=== PATIENT | female | born 1925 | race Caucasian/White ===

== ENCOUNTER 2016-10-18 04:49 | Observation (INO) | payer MEDICARE, OTHER ==
[2016-10-18 05:21] LABS: Hematocrit 43 % (35-47); Hemoglobin 14.5 g/dl (12.0-16.0); Mean Corpuscular HGB Conc 34 g/dl (31-36); Mean Corpuscular Hemoglobin 32 pg (27-31); Mean Corpuscular Volume 94 fL (80-97); Mean Platelet Volume 9 um3 (7.4-10.4); Red Blood Count 4.59 10^6/ul (4.0-5.4); Red Cell Distribution Width 15 % (10.5-15)
[2016-10-18 05:33] LABS: BUN/Creatinine Ratio 30.6 (8-20); C Reactive Protein 3.23 mg/L (< 5.00); EGFR African American 53.9 (>60); EGFR Non-African American 41.9 (>60); Globulin 3.7 g/dL (2-4); Magnesium 1.5 mg/dL (1.9-2.7); Potassium 3.3 mmol/L (3.5-5.0); Total Bilirubin 0.7 mg/dL (0.2-1.0); Total Protein 7.7 g/dL (6.4-8.9)
[2016-10-18 05:37] LABS: Troponin I 0.04 ng/mL (<0.04)
[2016-10-18 06:12] LABS: TSH (Thyroid Stimulating Horm) 3.91 mcIU/mL (0.34-5.60)
--- NOTE | 2016-10-18 07:09 | ED ---
Celine Be SooYoung, scribed for Miguel Bullock MD on 10/18/16 at 0559 . HPI Chest Pain - HPI Summary HPI Summary: A 89 y/o F presents to ED with acute intermittent L-sided onset [id number]. She woke up due to the pain. Episodes were brief. Associated sx include SOB, neck and shoulder pain. Pt is unsure if the neck and shoulder pain are acute with the CP or due to prior injury. PMHx: blood clots. - History of Current Complaint Chief Complaint: EDChestPainROMI Time Seen by Provider: 10/18/16 04:54 Hx Obtained From: Patient Onset/Duration: Resolved Timing: Intermittent Initial Severity: Moderate Current Severity: None Pain Intensity: 0 Pain Scale Used: 0-10 Numeric Associated Signs and Symptoms: Positive: Shortness of Breath, Other: - pos: neck and shoulder pain - Additional Pertinent History Primary Care Physician: DEB - Allergy/Home Medications Allergies/Adverse Reactions: Allergies Allergy/AdvReac Type Severity Reaction Status Date / Time Penicillins [PCN] Allergy Unknown Verified 01/10/16 12:03 Reaction Details Morphine and Related AdvReac Severe Hallucinati Verified 01/10/16 13:05 ons Hydrocodone [From Lortab] AdvReac Intermediate See Comment Verified 01/10/16 13: 05 Home Medications: Home Medications Insulin GLARGINE(*) [Lantus(*)] 5 units SUBCUT BEDTIME 10/18/16 [History Confirmed 10/18/16] Insulin LISPRO* [HumaLOG*] 2 unit SUBCUT AC 10/18/16 [History Confirmed 10/18/16 ] Isosorbide Mononitrate ER TAB* [Imdur ER TAB*] 30 mg PO DAILY 10/18/16 [History Confirmed 10/18/16] Potassium Chlor TAB* [Klor Con ER TAB*] 40 meq PO QPM 10/18/16 [History Confirmed 10/18/16] Sodium Chloride TAB* 2 gm PO QAM 10/18/16 [History Confirmed 10/18/16] Sodium Chloride TAB* 3 gm PO QPM 10/18/16 [History Confirmed 10/18/16] PMH/Surg Hx/FS Hx/Imm Hx Previously Healthy: No Endocrine/Hematology History: Reports: Hx Anticoagulant Therapy, Hx Diabetes Denies: Hx Blood Disorders, Hx Blood Transfusions, Hx Bone Marrow Disease, Hx Systemic Lupus Erythematosus, Hx Sickle Cell Disease, Hx Thyroid Disease, Hx Anemia, Hx Unexplained Bleeding Cardiovascular History: Reports: Hx Auto Implanted Cardiovert Defib, Hx Coronary Artery Disease, Hx Deep Vein Thrombosis, Hx Hypercholesterolemia, Hx Hypertension - W/MEDS, Hx Pacemaker/ICD - 2009, Hx Syncope, Other Cardiovascular Problems/Disorders - IDDM II Denies: Hx Aneurysm, Hx Angina, Hx Angioplasty, Hx Cardiac Arrest, Hx Cardiomegaly, Hx Congenital Heart Disease, Hx Congestive Heart Failure, Hx Hypotension, Hx Peripheral Vascular Disease, Hx Rheumatic Fever, Hx Valvular Heart Disease Respiratory History: Reports: Hx Chronic Bronchitis, Hx Pneumonia, Hx Pulmonary Edema, Hx Pulmonary Embolism, Hx Seasonal Allergies Denies: Hx Asthma, Hx Chronic Obstructive Pulmonary Disease (COPD), Hx Cystic Fibrosis, Hx Lung Cancer, Hx Pleural Effusion, Hx Sleep Apnea GI History: Reports: Hx Diverticulosis Denies: Hx Cirrhosis, Hx Crohn's Disease, Hx Gall Bladder Disease, Hx Gastroesophageal Reflux Disease, Hx Gastrointestinal Bleed, Hx Hiatal Hernia, Hx Irritable Bowel, Hx Jaundice, Hx Obstructive Bowel, Hx Ileostomy, Hx Pyloric Stenosis, Hx Ulcer History: Reports: Hx Kidney Infection Denies: Hx Acute Renal Failure, Hx Benign Prostatic Hyperplasia, Hx Chronic Renal Failure, Hx Dialysis, Hx Kidney Stones, Other Problems/Disorders Musculoskeletal History: Reports: Hx Arthritis, Hx Back Problems, Hx Orthopedic Injury, Hx Osteoporosis, Hx Tendonitis Denies: Hx Bursitis, Hx Congenital Bone Abnormalities, Hx Fibromyalgia, Hx Gout, Hx Scoliosis Sensory History: Reports: Hx Cataracts, Hx Contacts or Glasses, Hx Hearing Problem - Left ear Denies: Hx Eye Injury, Hx Eye Prosthesis, Hx Glaucoma, Hx Macular Degeneration, Hx Vision Problem, Hx Deafness, Hx Hearing Aid Opthamlomology History: Reports: Hx Cataracts, Hx Contacts or Glasses Denies: Hx Eye Injury, Hx Eye Prosthesis, Hx Glaucoma, Hx Macular Degeneration, Hx Vision Problem Neurological History: Reports: Hx Transient Ischemic Attacks (TIA), Other Neuro Impairments/Disorders - C-2 FX 02/20/2013 Denies: Hx Dementia, Hx Developmental Delay, Hx Headaches, Hx Migraine, Hx Nerve Disease, Hx Seizures, Hx Spinal Cord Injury Psychiatric History: Reports: Hx Depression - Surgical History Surgery Procedure, Year, and Place: x4. Triple bypass 1995 Hx Anesthesia Reactions: No Infectious Disease History: No Infectious Disease History: Denies: Hx Clostridium Difficile, Hx Hepatitis, Hx Human Immunodeficiency Virus (HIV), Hx Shingles, Hx Tuberculosis, Traveled Outside the [place] in Last 30 Days - Social History Occupation: Retired Lives: Alone Alcohol Use: None Substance Use Type: Reports: None Hx Tobacco Use: No Smoking Status (MU): Never Smoked Tobacco Review of Systems Positive: Chest Pain Positive: Shortness Of Breath Positive: Other - pos: neck and shoulder pain All Other Systems Reviewed And Are Negative: Yes Physical Exam Triage Information Reviewed: Yes Vital Signs On Initial Exam: Initial Vitals Temp Pulse Resp BP Pulse Ox 97.3 F 74 10 139/83 98 10/18/16 04:50 10/18/16 04:50 10/18/16 04:50 10/18/16 04:50 10/18/16 04:50 Vital Signs Reviewed: Yes Appearance: Positive: Well-Appearing, No Pain Distress Skin: Positive: Warm, Skin Color Reflects Adequate Perfusion, Dry Head/Face: Positive: Normal Head/Face Inspection Eyes: Positive: EOMI, NORBERT ENT: Positive: Normal ENT inspection Neck: Positive: Supple, Nontender Respiratory/Lung Sounds: Positive: Clear to Auscultation, Breath Sounds Present Cardiovascular: Positive: RRR Abdomen Description: Positive: Nontender, Soft Bowel Sounds: Positive: Present Musculoskeletal: Positive: Strength/ROM Intact, Other - BILAT PEDAL EDEMA Neurological: Positive: Normal, Sensory/Motor Intact, Alert, Oriented to Person Place, Time Psychiatric: Positive: Affect/Mood Appropriate - Rachell Coma Scale Coma Scale Total: 15 Diagnostics - Vital Signs Vital Signs Temp Pulse Resp BP Pulse Ox 10/18/16 04:50 97.3 F 74 10 139/83 98 - Laboratory Lab Results: Lab Results 10/18/16 10/18/16 10/18/16 Range/Units 05:03 05:03 05:03 WBC 6.0 (3.5-10.8) 10^3/ul RBC 4.59 (4.0-5.4) 10^6/ul Hgb 14.5 (12.0-16.0) g/dl Hct 43 (35-47) % MCV 94 (80-97) fL MCH 32 H (27-31) pg MCHC 34 (31-36) g/dl RDW 15 (10.5-15) % Plt Count 150 (150-450) 10^3/ul MPV 9 (7.4-10.4) um3 Neut % (Auto) 41.8 (38-83) % Lymph % (Auto) 35.1 (25-47) % Coosa % (Auto) 18.1 H (1-9) % Eos % (Auto) 4.2 (0-6) % Baso % (Auto) 0.8 (0-2) % Absolute Neuts (auto) 2.5 (1.5-7.7) 10^3/ul Absolute Lymphs (auto) 2.1 (1.0-4.8) 10^3/ul Absolute Monos (auto) 1.1 H (0-0.8) 10^3/ul Absolute Eos (auto) 0.3 (0-0.6) 10^3/ul Absolute Basos (auto) 0 (0-0.2) 10^3/ul Absolute Nucleated RBC 0.01 10^3/ul Nucleated RBC % 0.1 INR (Anticoag Therapy) 1.10 (0.89-1.11) APTT 29.7 (26.0-36.3) seconds D-Dimer, Quantitative 354 H (Less Than 230) ng/mL Sodium 137 (133-145) mmol/L Potassium 3.3 L (3.5-5.0) mmol/L Chloride 95 L (101-111) mmol/L Carbon Dioxide 35 H (22-32) mmol/L Anion Gap 7 (2-11) mmol/L BUN 37 H (6-24) mg/dL Creatinine 1.21 H (0.51-0.95) mg/dL Est GFR ( Amer) 53.9 (>60) Est GFR (Non-Af Amer) 41.9 (>60) BUN/Creatinine Ratio 30.6 H (8-20) Glucose 166 H (70-100) mg/dL Lactic Acid (0.5-2.0) mmol/L Calcium 10.0 (8.6-10.3) mg/dL Magnesium 1.5 L (1.9-2.7) mg/dL Total Bilirubin 0.70 (0.2-1.0) mg/dL AST 22 (13-39) U/L ALT 14 (7-52) U/L Alkaline Phosphatase 54 (34-104) U/L Total Creatine Kinase 51 (10-223) U/L CK-MB (CK-2) 2.7 (0.6-6.3) ng/mL Troponin I 0.04 H* (<0.04) ng/mL C-Reactive Protein 3.23 (< 5.00) mg/L B-Natriuretic Peptide ( - 100) pg/mL Total Protein 7.7 (6.4-8.9) g/dL Albumin 4.0 (3.2-5.2) g/dL Globulin 3.7 (2-4) g/dL Albumin/Globulin Ratio 1.1 (1-3) Lipase 92 H (11.0-82.0) U/L TSH Pending 10/18/16 10/18/16 Range/Units 05:03 05:03 WBC (3.5-10.8) 10^3/ul RBC (4.0-5.4) 10^6/ul Hgb (12.0-16.0) g/dl Hct (35-47) % MCV (80-97) fL MCH (27-31) pg MCHC (31-36) g/dl RDW (10.5-15) % Plt Count (150-450) 10^3/ul MPV (7.4-10.4) um3 Neut % (Auto) (38-83) % Lymph % (Auto) (25-47) % Coosa % (Auto) (1-9) % Eos % (Auto) (0-6) % Baso % (Auto) (0-2) % Absolute Neuts (auto) (1.5-7.7) 10^3/ul Absolute Lymphs (auto) (1.0-4.8) 10^3/ul Absolute Monos (auto) (0-0.8) 10^3/ul Absolute Eos (auto) (0-0.6) 10^3/ul Absolute Basos (auto) (0-0.2) 10^3/ul Absolute Nucleated RBC 10^3/ul Nucleated RBC % INR (Anticoag Therapy) (0.89-1.11) APTT (26.0-36.3) seconds D-Dimer, Quantitative (Less Than 230) ng/mL Sodium (133-145) mmol/L Potassium (3.5-5.0) mmol/L Chloride (101-111) mmol/L Carbon Dioxide (22-32) mmol/L Anion Gap (2-11) mmol/L BUN (6-24) mg/dL Creatinine (0.51-0.95) mg/dL Est GFR ( Amer) (>60) Est GFR (Non-Af Amer) (>60) BUN/Creatinine Ratio (8-20) Glucose (70-100) mg/dL Lactic Acid 1.6 (0.5-2.0) mmol/L Calcium (8.6-10.3) mg/dL Magnesium (1.9-2.7) mg/dL Total Bilirubin (0.2-1.0) mg/dL AST (13-39) U/L ALT (7-52) U/L Alkaline Phosphatase (34-104) U/L Total Creatine Kinase (10-223) U/L CK-MB (CK-2) (0.6-6.3) ng/mL Troponin I (<0.04) ng/mL C-Reactive Protein (< 5.00) mg/L B-Natriuretic Peptide 186 H ( - 100) pg/mL Total Protein (6.4-8.9) g/dL Albumin (3.2-5.2) g/dL Globulin (2-4) g/dL Albumin/Globulin Ratio (1-3) Lipase (11.0-82.0) U/L TSH Result Diagrams: 10/18/16 05:03 10/18/16 05:03 Lab Statement: Any lab studies that have been ordered have been reviewed, and results considered in the medical decision making process. Chest Pain Course/Dx - Course Assessment/Plan: NO CHEST PAIN IN ED. ADMIT HOSPITALIST STABLE. - Diagnoses Provider Diagnoses: Chest pain - Provider Notifications Discussed Care Of Patient With: Spoke with donal Bhardwaj Time Discussed With Above Provider: 06:23 Instructed by Provider To: Admit As Inpatient Discharge - Discharge Plan Condition: Stable Disposition: ADMITTED TO [facility] Referrals: Sujit Watters MD [Primary Care Provider] - The documentation as recorded by the Celine martin SooYoung accurately reflects the service I personally performed and the decisions made by , Miguel Bullock MD.
--- NOTE | 2016-10-18 07:54 | RAD ---
Indication: Chest pain. Chronic bronchitis. Diabetic, cardiac disease. Comparison: January 10, 2016 CT. Technique: Upright AP 0515 hours Report: Elevated lung volumes. Mild prominence of the interstitial markings. No alveolar consolidation, focal pulmonary lesion, pleural effusion, pneumothorax. Cardiomegaly, median sternotomy wires, mediastinal vascular clips, RIGHT atrial, and RIGHT ventricular level pacemaker leads. Unremarkable central pulmonary vasculature. Advanced arthropathy at the LEFT glenohumeral joint. IMPRESSION: Stigmata of chronic obstructive pulmonary disease. No acute cardiopulmonary process evident.
--- NOTE | 2016-10-18 08:52 | RAD ---
INDICATION: Bilateral lower extremity edema, positive d-dimer. COMPARISON: Comparison is made with a prior study from January 11, 2016. TECHNIQUE: Multiple real-time, color flow and Doppler tracings of both lower extremities were obtained. FINDINGS: The common femoral, femoral, profunda femoral and popliteal veins all demonstrate normal compressibility, augmentation with compression and phasic response with respiration. The posterior tibial and peroneal veins demonstrate normal compressibility and augmentation with compression. IMPRESSION: NO EVIDENCE FOR DEEP VENOUS THROMBOSIS.
[2016-10-18] MEDS ORDERED: Nitroglycerin TAB 0.4 MG* 0.4 MG TAB SL ONE (09:06)
[2016-10-18] MEDS ORDERED: Ondansetron INJ* 2 MG/ML VIAL IV PRN (09:15)
[2016-10-18] MEDS ORDERED: Dextrose 50% Syringe 50 ML* 25 GM/50 ML SYRINGE IV PUSH PRN (09:28)
--- NOTE | 2016-10-18 10:29 | HP ---
ADMISSION HISTORY AND PHYSICAL: DATE OF ADMISSION: 10/18/16 PRIMARY CARE PROVIDER: Dr. Watters; Physician at [facility] MANAGER FUND: Dr. Casas HEALTHCARE PROXY: Anthony Peralta, her son. CODE STATUS: DNR/DNI, discussed with the patient and her son updated MOLST form in chart. HISTORY OBTAINED: From interview with patient, past medical records. RELIABILITY OF RECORDS: Good; from patient is fair. CHIEF COMPLAINT: Chest pain. HISTORY OF PRESENT ILLNESS: This is an 89-year-old resident of [facility] with history of CAD, status post CABG as well as remote PCI per patient (not indicated in record here), chronic angina who has been in her usual state of health, although does note generally feeling weaker over the preceding months. She was last admitted in December 2015 with chest pain and a fall, noted in diastolic heart failure exacerbation, unable to perform stress test at that time or since that time secondary to shoulder injury and inability to lay in appropriate position. Overnight, between 1:30 and 2 a.m., developed chest pain described as sharp, lasting for seconds to minutes, associated with headache but no lightheadedness, palpitations, nausea, vomiting, diaphoresis. She notes she had shortness of breath intermittent and irrespective of chest pain. She indicated to nursing that she was having this chest pain who contacted the on- call doctor and directed to the emergency room. Patient indicated she did not want to proceed to the ER. Of note - she's been off oxygen for one month and Isordil 10 mg was stopped on the 6th and Imdur 30 mg was started. She denies any recent fevers or chills. She has a chronic cough. She has on and off diarrhea fluctuating with constipation, no symptoms. She says chest pain is similar compared to her chronic anginal symptoms except this has become actually more frequent than just this evening, and has been occurring up to several times per week. She describes this chest pain as different in that it has been more frequent than past. She notes that she still has symptoms of chest discomfort which prompted presentation to the ER. PAST MEDICAL HISTORY: 1. Insulin-dependent diabetes mellitus. 2. Coronary artery disease, with history of CABG. 3. Permanent pacemaker, sinus node dysfunction. 4. Hyperlipidemia. 5. History of DVT. 6. History of PE, off of anticoagulation. 7. History of TIA. 8. History of atrial fibrillation, off of anticoagulation. 9. Known chronic angina. 10. Gastroesophageal reflux disease. 11. Left humerus fracture. 12. Chronic kidney disease. MEDICATIONS: Reviewed from [facility] list: 1. Metoprolol 12.5 mg twice daily. 2. Metolazone 5 mg daily. 3. Senna/docusate two __tabs__ at bedtime. 4. Potassium chloride 20 mEq in the morning; not on home list, though started this admission. 5. Magnesium oxide 400 mg daily. 6. Imdur ER 30 mg daily. 7. Lantus 5 units at bedtime. 8. Lispro 2 units with meals. 9. Lasix 60 mg twice daily. 10. Citalopram 5 mg daily. 11. Aspirin 81 mg daily. 12. Tylenol 1000 mg 3x daily. ALLERGIES: 1. PENICILLIN. 2. MORPHINE. 3. HYDROCODONE. FAMILY HISTORY: Reviewed and noncontributory to this admission. SOCIAL HISTORY: No history of tobacco, alcohol, or illicits. Lives at [facility]. REVIEW OF SYSTEMS: As per HPI; otherwise, all other systems negative. PHYSICAL EXAMINATION GENERAL: Elderly woman sitting up in bed, talks in full sentences, no apparent distress. VITAL SIGNS: When seen by this author, 158/75, heart rate 73, respiratory rate 16, 98% on room air, T-max in the emergency room 97.3. HEENT: Oropharynx is clear. Has moist mucous membranes. Sclerae anicteric. NECK: Nonelevated JVD. No palpable goiter. No cervical or supraclavicular lymphadenopathy. CARDIOVASCULAR: She had an irregular heart rate without notable murmurs, rubs, or gallops. LUNGS: Clear to auscultation. Has minimal rales in bilateral bases. ABDOMEN: Soft, non-tender, non-distended. Positive bowel sounds. EXTREMITIES: Warm and well-perfused with trace lower extremity edema. NEURO: She is alert and oriented x3. Cranial nerves intact. PSYCH: No agitation, anxiety, or depression. DIAGNOSTIC STUDIES/LAB DATA: Labs reviewed - troponin-I on presentation 0.04, consistent with previous tests. BNP 186. Lipase 92. TSH 3.9. BUN 37, creatinine 1.21. D-dimer 354, noted to be less than prior stay when PE was ruled out. White blood cell count 6, hemoglobin 14.5, platelets 150. EKG - difficult to interpret, but appears to be atrial fibrillation with intermitted ventricular paced beats. No evidence of ischemia. Chest x-ray - cardiomegaly, stigmata of COPD. ASSESSMENT AND PLAN: This is an 89-year-old female with past medical history of CAD, atrial fibrillation, type-II diabetes, known chronic angina, presenting with chest pain overnight that's been intermittent and short in duration. 1. Chest pain - consistent with chronic anginal symptoms. Of note - patient would not elect to pursue cardiac catheterization even in the setting of positive stress test. Discussed this at length with patient and her health care proxy. They understand that pursuing a stress test would only offer information that may indicate a stress test. They do not wish to pursue it at this time even if it were possible. She wishes to titrate medication for optimal medical therapy to remain symptom free. We'll cycle troponins, check transthoracic echocardiogram, pursue cardiology consult. As patient of Dr. Casas's, ask for assistance in titrating medications for symptom freedom, likely to include increasing Nitroglycerin as blood pressure tolerates. 2. Lower extremity __edema - continue Lasix, Metolazone, strict I's and O' s, daily weights. 3. CKD - __dose meds accordingly . 4. Diabetes - fingerstick glucose and Lantus with sliding scale insulin. 5. Atrial fibrillation - rate controlled, off of anticoagulation chronically. 6. Diet - heart healthy, no caffeine, mechanical soft per [facility] records. CC: Dr. Watters; Dr. Casas; Physician at [facility] [id number]/CPS #: [id number] [facility]
[2016-10-18] MEDS: Acetaminophen TAB* 325 MG PO PRN (10:34)
[2016-10-18] MEDS: Insulin LISPRO* 1 UNITS UNIT SUBCUT SCH ×3 (12:45→21:14)
--- NOTE | 2016-10-18 13:39 | CONSULT ---
Subjective Date of Service: 10/18/16 Interval History: Admission Date: 10/18/16 Provider: Familia Freeman MD/Hospitalist NIELS Watters/Physician at [facility], [place] [employer]eorological Equipment Repairer: Dr. Casas Date of consult: 10/18/2016 CC: Chest pain Reason for consult: Chest pain HISTORY OF PRESENT ILLNESS: Memo Onofre an 89-year-old resident of [facility], [place] with history of CAD/ CABG 1996, ?PCI, pacemaker AFib, chronic angina and blood clots per her account. She was on warfarin at some point and she is not sure why this was stopped. Was unable to complete a stress test last year due to inability to lift arms. Overnight, between 1:30 and 2 a.m., developed chest pain described as sharp associated with headache and it radiated under her left breast. No dyspnea with this episode, palpitations, lightheadedness or syncope. Her baseline breathing is unchanged and there has been no significant edema. She has been off oxygen for a month and Isordil 10 mg BID was stopped on the 6th and Imdur 30 mg was started. She has noted getting chest pain several times a week. PAST MEDICAL HISTORY: 1. Insulin-dependent diabetes mellitus. 2. Coronary artery disease, with history of CABG. 3. Permanent pacemaker, sinus node dysfunction. 4. Hyperlipidemia. 5. History of DVT. 6. History of PE, off of anticoagulation. 7. History of TIA. 8. History of atrial fibrillation, off of anticoagulation. 9. Known chronic angina. 10. Gastroesophageal reflux disease. 11. Left humerus fracture. 12. Chronic kidney disease. ALLERGIES: 1. PENICILLIN. 2. MORPHINE. 3. HYDROCODONE. FAMILY HISTORY: Reviewed and noncontributory to this admission. SOCIAL HISTORY: No history of tobacco, alcohol, or illicits. Lives at [facility], [place]. Medications Active Medications: Acetaminophen (Tylenol Tab*) 650 mg PO Q6H PRN PRN Reason: PAIN Last Admin: 10/18/16 10:34 Dose: 650 mg Aspirin (Aspirin Ec Low Dose*) 81 mg PO DAILY DONTE Citalopram Hydrobromide (Celexa Tab*) 5 mg PO DAILY DONTE Dextrose (D50w Syringe 50 Ml*) 12.5 gm IV PUSH .FOR FS < 60 - SS PRN PRN Reason: FS < 60 Furosemide (Lasix Tab*) 60 mg PO BID DONTE Heparin Sodium (Porcine) (Heparin Vial(*)) 5,000 units SUBCUT Q8HR [facility] Influenza Virus Vaccine (Fluarix *Quad* *) 0.5 ml IM .ONCE ONE Stop: 10/19/16 09:01 Insulin Glargine (Lantus(*)) 5 units SUBCUT BEDTIME [facility] Insulin Human Lispro (Humalog*) 0 units SUBCUT ACHS [facility] PRN Reason: Protocol Last Admin: 10/18/16 12:45 Dose: 2 units Isosorbide Mononitrate (Imdur Er Tab*) 30 mg PO DAILY [facility] Magnesium Oxide (Magox 400 Tab*) 400 mg PO DAILY [facility] Metolazone (Zaroxolyn Tab*) 5 mg PO DAILY [facility] Metoprolol Tartrate (Lopressor Tab*) 12.5 mg PO BID [facility] Ondansetron HCl (Zofran Inj*) 4 mg IV Q4H PRN PRN Reason: NAUSEA Potassium Chloride (Klor Con Er Tab*) 20 meq PO QAM [facility] Home Medications: Aspirin EC Low Dose* [Ecotrin EC Low Dose*] 81 mg PO DAILY 02/20/13 [History Confirmed 10/18/16] Citalopram TAB* [Celexa TAB*] 5 mg PO DAILY 02/20/13 [History Confirmed 10/18/16 ] Magnesium Oxide TAB* [MagOx 400 TAB*] 400 mg PO DAILY 02/20/13 [History Confirmed 10/18/16] Potassium Chlor TAB* [Potassium Chlor TAB 20 MEQ*] 20 meq PO QAM 02/20/13 [ History Confirmed 10/18/16] Acetaminophen [Acetaminophen Extra Stren] 1,000 mg PO TID 01/10/16 [History Confirmed 10/18/16] Furosemide TAB* [Lasix TAB*] 60 mg PO BID 01/10/16 [History Confirmed 10/18/16] Sennosides-Docusate Sodium [Senokot S 8.6-50 mg] 2 tab PO BEDTIME 01/10/16 [ History Confirmed 10/18/16] Insulin GLARGINE(*) [Lantus(*)] 5 units SUBCUT BEDTIME 10/18/16 [History Confirmed 10/18/16] Insulin LISPRO* [HumaLOG*] 2 unit SUBCUT AC 10/18/16 [History Confirmed 10/18/16 ] Isosorbide Mononitrate ER TAB* [Imdur ER TAB*] 30 mg PO DAILY 10/18/16 [History Confirmed 10/18/16] Metolazone [Metolazone] 1 tab PO DAILY 10/18/16 [History Confirmed 10/18/16] Metoprolol Tartrate [Metoprolol Tartrate] 0.5 tab PO BID 10/18/16 [History Confirmed 10/18/16] Review of Systems - Measurements Intake and Output: Intake and Output Last 24 Hours 10/16/16 10/17/16 10/18/16 10/19/16 06:59 06:59 06:59 06:59 Weight 156 lb 14.4 oz - Review of Systems Constitutional Symptoms: Positive: Weakness Negative: Weight Loss, Fatigue, Fever, Night Sweats Dermatology: Negative: Rash, Skin Lesions HEENT: Negative: Change in Hearing, Vertigo, Tinnitus Eyes: Negative: Change in Vision, Double Vision Thyroid: Negative: Cold Intolerance, Heat Intolerance, Sweatiness, Tremor, Frequent Defecation, Constipation, Palpitations, Primary Hypothyroidism, Primary Hyperthyroidism, Weight Loss, Weight Gain Pulmonary: Positive: Cough, Shortness of Breath, Exercise Intolerance Negative: Sputum, Hemoptysis, Wheezing, Respiratory Distress, COPD, Asthma Cardiology: Positive: Chest Pain, Shortness of Breath Negative: Palpitations, Swelling of Ankles, Peripheral Vascular Dis, Edema, Faintness, Syncope, Claudication, Paroxysmal Nocturnal Dyspnea, Orthopnea Gastroenterology: Negative: Abdominal Pain, Nausea, Vomiting, Anorexia, Indigestion, Difficulty Swallowing, Heartburn, Constipation, Diarrhea Genital - Urinary: Negative: Dysuria, Hematuria Musculoskeletal: Negative: Joint Pain, Joint Stiffness, Arthritis, Osteoporosis, Low Back Pain Endocrinology: Negative: Thyroid Problems, Obesity, Diabetes, Hyperglycemia, Hypoglycemia, Polydipsia, Polyuria Hematologic/Lymphatic: Positive: Use of Antiplatelet Drugs Negative: Hx Leukemia, Hx Lymphoma, Use of Anticoagulant Neurology: Positive: Headaches Negative: Migraines, Change in Vision, Diplopia, Dizziness, Change in Balancing, Change in Coordination, Change in Memory, Change in Speech, Change in Sphincter Function, Change in Walking, Numbness\Paresthesiae, Hx of Stroke\ TIA, Hx Seizures Psychiatry: Negative: Depressed Mood, Adhedonia, Guilt Feelings, Tearfulness, Unusual Fatigue Allergic/Immunologic: Negative: Hx HIV, Immunocompromise Review of Systems Statement: All other review of systems negative, unless stated above. Objective Vital Signs: Temp Pulse Resp BP Pulse Ox 97.3 F 74 10 139/83 98 10/18/16 04:50 10/18/16 04:50 10/18/16 04:50 10/18/16 04:50 10/18/16 04:50 Appearance: nad, elderly, pleasant Ears/Nose/Mouth/Throat: Clear Oropharnyx, Mucous Membranes Moist Neck: NL Appearance and Movements; NL JVP Respiratory: Symmetrical Chest Expansion and Respiratory Effort, Clear to Auscultation Cardiovascular: No Edema, - - irregularly irregular, no significant murmur Abdominal: NL Sounds; No Tenderness; No Distention Extremities: No Edema Skin: No Rash or Ulcers Neurological: Alert and Oriented x 3 Laboratory Results: 10/18/16 05:03 10/18/16 05:03 INR (Anticoag Therapy) 1.10 (0.89-1.11) 10/18/16 05:03 APTT 29.7 seconds (26.0-36.3) 10/18/16 05:03 Total Bilirubin 0.70 mg/dL (0.2-1.0) 10/18/16 05:03 AST 22 U/L (13-39) 10/18/16 05:03 ALT 14 U/L (7-52) 10/18/16 05:03 Alkaline Phosphatase 54 U/L (34-104) 10/18/16 05:03 CK-MB (CK-2) 2.7 ng/mL (0.6-6.3) 10/18/16 05:03 B-Natriuretic Peptide 186 pg/mL (-100) H 10/18/16 05:03 Total Protein 7.7 g/dL (6.4-8.9) 10/18/16 05:03 Albumin 4.0 g/dL (3.2-5.2) 10/18/16 05:03 Globulin 3.7 g/dL (2-4) 10/18/16 05:03 Albumin/Globulin Ratio 1.1 (1-3) 10/18/16 05:03 TSH 3.91 mcIU/mL (0.34-5.60) 10/18/16 05:03 10/18/16 10/18/16 05:03 11:25 Troponin I 0.04 H* 0.04 H* Diagnostic Imaging: TTE 12/2015: mild-mod LVH, LVEF 55-60%, septal flattening c/w RV volume/pressure overload, RV function mild-mod reduced, mod-severe pHTN 10/2012: Normal vasodilator stress MPI EKG Data: ekg 10/18/2016 Afib, RBBB with diffuse TWI and demand V-pace Assessment/Plan 89 year old woman with CAD s/p CABG, HFpEF, Afib, pacemaker, history DVT/?PE details unclear, unable to lift arms up in past for a stress test admitted with chest pain possibly anginal in nature, detectable troponin without rise and fall suggestive of ACS. - I am uncertain if the pain is musculoskeletal, GI or cardiac related but given her history I would assume the latter. She is asymptomatic at this time. I would recommend to increase her imdur and beta-stephen dosing. She has a follow up appointment 10/26/[address] Casas - She is concerned about her history of blood clots and not currently being on warfarin. She also has atrial fibrillaton. It would not be unreasonable to add low dose eliquis 2.5 mg PO BID to her regimen if there are no contraindications (unsure why warfarin was stopped) Thank you for allowing me to participate in the cardiovascular care of this patient. Please do not hesitate to contact me with questions or concerns.
[2016-10-18] MEDS: Heparin VIAL(*) 5000 UNITS/ML VIAL (FIVE THOUSAND) SUBCUT SCH ×2 (14:50→21:14)
--- NOTE | 2016-10-18 16:01 | ECHO ---
Patient: NUPUR PERDOMO [facility] Rec#: [id number] : 1925 Date: 10/18/2016 Age: 89y Height: 154.94 cm / 61.0 in Weight: 72.57 kg / 159.9 lbs Sex: F BSA: 1.72 Room#: 438 Admit Date#: 10/18/2016 Type: Inpatient Referring: Familia Freeman MD Reading: Gareth Barger MD Manager Quality Compliance: Saranya Shirley [facility] CC: Sujit Watters MD Transthoracic Echocardiogram Indication: Angina/CAD BP: 139/83 HR: 84 Rhythm: A-Fib Findings History: DM,CAD with CABG,s/p pacer insert,HLD,DVT,PE,TIA,a-fib,GERD,CKD. Technical Comments: The study was technically limited due to the patient's inability to lay in the left lateral decubitus position. Left Ventricle: The left ventricular chamber size is normal. Mild concentric left ventricular hypertrophy is observed. There is normal left ventricular systolic function. The estimated ejection fraction is 55-60%. There is abnormal ventricular septal wall motion consistent with right ventricular pacemaker. There is no consistent Doppler evidence of clinically significant diastolic dysfunction.Accurate tissue doppler evaluation is hindered by mitral annular calcification. Left Atrium: The left atrium is moderately dilated. Right Ventricle: The right ventricle is not well visualized.In some views the right ventricle appears mildly enlarged and has mild to moderate systolic dysfunction. A pacemaker wire is visualized in the right ventricle. Right Atrium: The right atrium is moderately dilated. A pacemaker wire is visualized in the right atrium. Aortic Valve: The aortic valve is trileaflet. There is no evidence of aortic regurgitation. There is no evidence of aortic stenosis. Mitral Valve: There is mitral annular calcification. The mitral valve leaflets are mildly thickened. There is mild mitral regurgitation. There is no evidence of mitral stenosis. Tricuspid Valve: The tricuspid valve leaflets are normal. There is mild tricuspid regurgitation. The tricuspid regurgitant jet is directed toward the septum. Unable to estimate the right ventricular systolic pressure. There is no tricuspid stenosis. Pulmonic Valve: The pulmonic valve appears normal. There is mild pulmonic regurgitation. There is no pulmonic stenosis. Pericardium: The pericardium appears normal. Aorta: There is no dilatation of the ascending aorta. The aortic arch is not well visualized. There is no dilation of the aortic root. Pulmonary Artery: The main pulmonary artery appears normal. Venous: The inferior vena cava appears normal in size. There is an approximate 50% respiratory change in the inferior vena cava dimension. Conclusions The study was technically limited due to the patient's inability to lay in the left lateral decubitus position. There is normal left ventricular systolic function. There is abnormal ventricular septal wall motion consistent with right ventricular pacemaker. The estimated ejection fraction is 55-60%. The left atrium is moderately dilated. A pacemaker wire is visualized in the right ventricle. A pacemaker wire is visualized in the right atrium. There is mild tricuspid regurgitation. The tricuspid regurgitant jet is directed toward the septum. Unable to estimate the right ventricular systolic pressure. The right atrium is moderately dilated. There is mild mitral regurgitation. The left atrium is moderately dilated. The right ventricle is not well visualized.In some views the right ventricle appears mildly enlarged and has mild to moderate systolic dysfunction. The patient appears to be in atrial fibrillation. Compared to report of study from 01/13/2016 the degree of mitral and tricuspid regurgitation appears less but are not well visualized. Measurements Name Value Normal Range RVIDd (AP) 2D 3.6 cm (0.9 - 2.6) RVDdMajor (2D) 4.4 cm (2.2 - 4.4) RAd ISD 4CH 5.1 cm (3.4 - 4.9) RA (A4C)W 5.1 cm (2.9 - 4.6) IVSd (2D) 1.1 cm (0.6 - 1) LVPWd (2D) 1 cm (0.6 - 1) LVIDd (2D) 4.1 cm (3.6 - 5.4) LVIDs (2D) 2.4 cm - LV FS (2D) 41 % (25 - 45) Aortic Annulus 1.7 cm (1.4 - 2.6) Ao root diameter (2D) 3.1 cm (2.1 - 3.5) Ascending Ao 2.6 cm (2.1 - 3.4) LA dimension (AP) 2D 4.8 cm (2.3 - 3.8) LAd ISD 4CH 5.2 cm (2.9 - 5.3) LA ISD 4CH W 4.4 cm (2.5 - 4.5) Name Value Normal Range MV E-wave Vmax 1 m/sec - MV deceleration time 209 msec - LV septal e' Vmax 24 m/sec - LV lateral e' Vmax 16.67 m/sec - LV E:e' septal ratio 0.04 ratio - LV E:e' lateral ratio 0.06 ratio - Name Value Normal Range AV Vmax 0.9 m/sec - AV VTI 19.1 cm - AV peak gradient 3.14 mmHg - AV mean gradient 1.49 mmHg - LVOT Vmax 0.6 m/sec - LVOT VTI 14.7 cm - LVOT peak gradient 1.53 mmHg - LVOT mean gradient 0.75 mmHg - Name Value Normal Range TR Vmax 2.4 m/sec - TR peak gradient 24 mmHg - RAP 8 mmHg - RVSP 32 mmHg - IVC diameter 2.6 cm - Name Value Normal Range PV Vmax 0.6 m/sec - PV peak gradient 1.71 mmHg -
[2016-10-18] MEDS ORDERED: Insulin GLARGINE(*) 1 UNITS UNIT SUBCUT SCH (21:00)
[2016-10-18] MEDS ORDERED: Metoprolol Tartrate TAB* 25 MG PO SCH (21:00)
[2016-10-18] MEDS: Furosemide TAB* 20 MG PO SCH (21:14)
[2016-10-18 23:35] LABS: Urine Bilirubin Negative (Negative); Urine Glucose Negative (Negative); Urine Nitrite Negative (Negative)
[2016-10-19] MEDS: Acetaminophen TAB* 325 MG PO PRN ×2 (01:38→09:47)
[2016-10-19] MEDS: Heparin VIAL(*) 5000 UNITS/ML VIAL (FIVE THOUSAND) SUBCUT SCH (05:39)
[2016-10-19] MEDS: Insulin LISPRO* 1 UNITS UNIT SUBCUT SCH ×2 (08:48→12:33)
[2016-10-19] MEDS ORDERED: Citalopram TAB* 10 MG PO SCH (09:00)
[2016-10-19] MEDS ORDERED: Isosorbide Mononitrate ER TAB* 30 MG PO SCH ×2 (09:00)
[2016-10-19] MEDS ORDERED: Metoprolol Succinate XL TAB* 25 MG PO SCH (09:00)
[2016-10-19] MEDS ORDERED: Magnesium Oxide TAB* 400 MG PO SCH (09:00)
[2016-10-19] MEDS ORDERED: Metolazone TAB* 5 MG PO SCH (09:00)
[2016-10-19] MEDS ORDERED: Potassium Chlor TAB* 20 MEQ TAB.ER PO SCH (09:00)
[2016-10-19] MEDS ORDERED: Influenza VAC *QUAD* 2016-17* 0.5 ML SYRINGE IM ONE (09:00)
[2016-10-19] MEDS ORDERED: Aspirin EC Low Dose* 81 MG TAB.EC PO SCH (09:00)
[2016-10-19] MEDS: Furosemide TAB* 20 MG PO SCH (09:37)
[2016-10-19 09:52] VITALS: BP 119/57
--- NOTE | 2016-10-19 10:51 | DCNOTE ---
Patient seen this morning. Complaining of some pain her heels but no chest pain. Confirms she would not want to proceed with stress test/cath. Discussed medication changes with her. She denies any bleeding history and does not know why she is no longer taking coumadin. On exam, RRR, s1 and s2 present, no m/g/r, lungs CTA B/L, no w/r/r, abd soft, NTND, BS+, no LE edema, heels without any erythema or skin breakdown Plan to discharge today with increased dose of Metoprolol and Imdur, also with addition of low dose Eliquis. Has f/u with Dr. Casas scheduled soon.
[2016-10-19] MEDS ORDERED: Apixaban* 2.5 MG TAB PO SCH (11:00)
--- NOTE | 2016-10-19 12:17 | DS ---
CC: Dr. Casas DATE OF ADMISSION: 10/18/2016. DATE OF DISCHARGE: 10/19/2016. PRIMARY CARE PHYSICIAN: Dr. Sujit Watters [facility], [place]. CONSULTANTS DURING THIS HOSPITALIZATION: Dr. Chris Hernández, Cardiology. PRINCIPAL DISCHARGE DIAGNOSIS: Angina. SECONDARY DIAGNOSES: Coronary artery disease, status post CABG, pacemaker placement, hyperlipidemia , history of DVT and PE, history of transient ischemic attack, history of atrial fibrillation, insul in dependent diabetes, GERD, chronic kidney disease. DISCHARGE MEDICATION REGIMEN: 1. Apixaban 2.5 mg by mouth 2 times daily. 2. Isosorbide mononitrate 45 mg by mouth daily. 3. Metoprolol succinate 37.5 mg by mouth daily. 4. Tylenol 1000 mg by mouth 3 times daily. 5. Aspirin 81 mg by mouth daily. 6. Celexa 5 mg by mouth daily. 7. Lasix 60 mg by mouth two times daily. 8. Lantus 5 units subcutaneous at bedtime. 9. Lispro 2 units subcutaneous with meals. 10. Magnesium oxide 400 mg by mouth daily. 11. Potassium chloride 20 mEq by mouth daily. 12. Senna two tablets by mouth at bedtime. 13. Metolazone 5 mg by mouth daily. STUDIES DONE DURING HOSPITALIZATION: 1. Chest x-ray: Impression: Stigmata of chronic obstructive pulmonary disease. No acute cardiopul monary process evident. 2. Bilateral lower extremity Doppler's: Impression: No evidence for deep venous thrombosis. 3. Transthoracic echocardiogram: Conclusion: Study is technically limited due to the patient's to lie on her side. Normal left ventricular systolic function. Abnormal ventricular septal wall motio n consistent with right ventricular pacemaker. Estimated ejection fraction is 55 to 60 percent. Th e left atrium is moderately dilated. Pacemaker wire is visualized on the right ventricle and right atrium. There is mild tricuspid regurgitation. Tricuspid regurgitant jet is directly toward the se ptum. Unable to estimate right ventricular systolic pressure. The right atrium is moderately dilat ed. The mild mitral regurgitation of the left atrium is moderately dilated. The right ventricle is not well visualized. In some views, the right ventricle appears mildly enlarged and has mild to mo derate systolic dysfunction. The patient appears to be in atrial fibrillation. Compared to report of study from 01/13/2016, the degree of mitral and tricuspid regurgitation appears less, but are not well visualized. HISTORY OF PRESENT ILLNESS AND HOSPITAL SUMMARY: Please see the full history and physical by Dr. Senia Freeman for full details. Briefly, Ms. Onofre is an 89- year-old female with a past medical h istory as stated above who presents to the hospital with intermittent chest pain that has become mor e frequent and seems like a cardiac pain. She had some recent medication changes including come off of oxygen and changing her Isordil to Imdur. The patient was evaluated by Cardiology who recommend ed increasing the patient's Imdur and beta stephen which was done. The patient also has a history of A-fib and DVT and has been on Coumadin for a long time. She is currently not taking it, she is cain zaragoza of why she is not taking it and she has had no history of bleeds. We will restart a low dose E liquis at Cardiology's recommendation. The patient has a follow-up with her own enrollment counselor, Dr. Roula gordon, in about one week and medication can be further adjusted at that point if needed. Total time spent on this discharge was 40 minutes. This is a summary of the hospitalization, please see the full medical record for further details. [id number]/[facility] #: [id number]
== END 2016-10-19 13:54 ==
LOC: ED 04:49 → MEDTELE 09:07
PROVIDERS: ADMIT Internal Medicine; ATTEND Hospitalist
DX: I25.119 Atherosclerotic heart disease of native coronary artery with unspecified angina pectoris (principal); Z95.1 Presence of aortocoronary bypass graft; N18.9 Chronic kidney disease, unspecified; I48.91 Unspecified atrial fibrillation; E78.5 Hyperlipidemia, unspecified; R06.02 Shortness of breath; R07.9 Chest pain, unspecified; Z23 Encounter for immunization; Z95.0 Presence of cardiac pacemaker; Z86.718 Personal history of other venous thrombosis and embolism; Z86.711 Personal history of pulmonary embolism; Z86.73 Personal history of transient ischemic attack (TIA), and cerebral infarction without residual deficits; E11.9 Type 2 diabetes mellitus without complications; Z79.4 Long term (current) use of insulin; K21.9 Gastro-esophageal reflux disease without esophagitis; Z79.82 Long term (current) use of aspirin; Z79.899 Other long term (current) drug therapy; Z88.0 Allergy status to penicillin; Z88.5 Allergy status to narcotic agent; I45.10 Unspecified right bundle-branch block; I51.7 Cardiomegaly
CPT/HCPCS: 36415; 71010; 80053; 81003; 82550; 82553; 83605; 83690; 83735; 83880; 84443; 84484; 85025; 85379; 85610; 85730; 86140; 87641; 90471; 90686; 93005; 93306; 93970; 96372; 99285; A9270-GY; G0008; G0378; J1644

== ENCOUNTER 2017-02-19 11:30 | Inpatient (IN) | payer MEDICARE, MEDICAID ==
--- NOTE | 2017-02-19 12:56 | RAD ---
INDICATION: Short of breath COMPARISON: October 18, 2016 TECHNIQUE: PA and lateral views were obtained. FINDINGS: Bones/Soft Tissues: There are no acute bony findings. There is left-sided cardiac pacemaker Cardiomediastinal: The cardiomediastinal silhouette is normal in size. There is CABG. Central pulmonary vessels and interstitium are mildly prominent consistent with mild passive congestion. There is likely underlying chronic interstitial changes well. Lungs: There is no focal consolidation. Pleura: There are no pleural effusions. Other: None IMPRESSION: SUSPECT MILD PASSIVE CONGESTIVE FINDINGS WITH UNDERLYING CHRONIC INTERSTITIAL CHANGE
[2017-02-19 13:45] LABS: Hematocrit 38 % (35-47); Hemoglobin 12.5 g/dl (12.0-16.0); Mean Corpuscular HGB Conc 33 g/dl (31-36); Mean Corpuscular Hemoglobin 32 pg (27-31); Mean Corpuscular Volume 97 fL (80-97); Mean Platelet Volume 9 um3 (7.4-10.4); Red Blood Count 3.95 10^6/ul (4.0-5.4); Red Cell Distribution Width 15 % (10.5-15); White Blood Count 6.5 10^3/ul (3.5-10.8)
[2017-02-19] MEDS ORDERED: Furosemide IV* 10 MG/ML 2 ML VIAL (20 MG) IV ONE (14:01)
[2017-02-19 14:02] LABS: ALT 14 U/L (7-52); Albumin 3.7 g/dL (3.2-5.2); Alkaline Phosphatase 54 U/L (34-104); BUN/Creatinine Ratio 43.7 (8-20); Blood Urea Nitrogen 55 mg/dL (6-24); C Reactive Protein 7.31 mg/L (< 5.00); CO2 Carbon Dioxide 40 mmol/L (22-32); Calcium 9.5 mg/dL (8.6-10.3); Chloride 88 mmol/L (101-111); Creatine Kinase 55 U/L (10-223); EGFR African American 51.4 (>60); Globulin 3.5 g/dL (2-4); Glucose 198 mg/dL (70-100); Sodium 134 mmol/L (133-145); Total Protein 7.2 g/dL (6.4-8.9)
[2017-02-19 14:19] LABS: Troponin I 0.05 ng/mL (<0.04)
[2017-02-19] MEDS ORDERED: Ondansetron INJ* 2 MG/ML VIAL IV PRN (15:56)
[2017-02-19] MEDS ORDERED: Magnesium Hydroxide LIQ* 30 ML UDC PO PRN (15:56)
[2017-02-19] MEDS ORDERED: Dextrose 50% Syringe 50 ML* 25 GM/50 ML SYRINGE IV PUSH PRN (16:11)
--- NOTE | 2017-02-19 16:26 | ED ---
Smita Be Auryana, scribed for Bertin Mello MD on 02/19/17 at 1212 . Shortness of Breath - HPI Summary HPI Summary: 89 year old female presents with SOB 2 days ago. She also has cough, abdominal pain, constipation (last bm - 2 days ago), and bilateral LE edema. She denies any fever, chills, chest pain (none now but previously), and diarrhea. PMHx is significant for CHF, HTN, A-Fib, DM, and CABG x3. FHx is significant for CAD. - History of Current Complaint Chief Complaint: EDShortnessOfBreath Time Seen by Provider: 02/19/17 11:58 Hx Obtained From: Patient Onset/Duration: Gradual Onset, Lasting Days - 2, Still Present Timing: Constant Current Severity: Mild Dyspnea At: Rest Associated Signs & Symptoms: Cough (Nonproductive), Edema - bilateral LE - Allergy/Home Medications Allergies/Adverse Reactions: Allergies Allergy/AdvReac Type Severity Reaction Status Date / Time Penicillins [PCN] Allergy Unknown Verified 01/10/16 12:03 Reaction Details Morphine and Related AdvReac Severe Hallucinati Verified 01/10/16 13:05 ons Hydrocodone [From Lortab] AdvReac Intermediate See Comment Verified 01/10/16 13: 05 Home Medications: Home Medications Acetaminophen [Acetaminophen Extra Stren] 500 mg PO BID PRN 02/19/17 [History Confirmed 02/19/17] Citalopram TAB* [CeleXA TAB*] 5 mg PO DAILY 02/19/17 [History Confirmed 02/19/17 ] Isosorbide Mononitrate ER TAB* [Imdur ER TAB*] 30 mg PO QAM 02/19/17 [History Confirmed 02/19/17] LoraTADine TAB(NF) [Claritin 10 MG TAB(NF)] 10 mg PO DAILY 02/19/17 [History Confirmed 02/19/17] Metolazone TAB* [Zaroxolyn TAB*] 5 mg PO QAM 02/19/17 [History Confirmed ] Metoprolol Succinate XL TAB* [Toprol XL TAB*] 25 mg PO QAM 02/19/17 [History Confirmed 02/19/17] Nitrofurantoin Monohyd Macro [Macrobid] 100 mg PO BID 02/19/17 [History Confirmed 02/19/17] Pregabalin CAP(*) [Lyrica CAP(*)] 25 mg PO BID 02/19/17 [History Confirmed 02/19] PMH/Surg Hx/FS Hx/Imm Hx Endocrine/Hematology History: Reports: Hx Anticoagulant Therapy Denies: Hx Blood Disorders, Hx Blood Transfusions, Hx Bone Marrow Disease, Hx Diabetes, Hx Systemic Lupus Erythematosus, Hx Sickle Cell Disease, Hx Thyroid Disease, Hx Anemia, Hx Unexplained Bleeding Cardiovascular History: Reports: Hx Auto Implanted Cardiovert Defib, Hx Coronary Artery Disease, Hx Deep Vein Thrombosis, Hx Hypercholesterolemia, Hx Hypertension, Hx Pacemaker/ICD - 2009, Hx Syncope, Other Cardiovascular Problems /Disorders - IDDM II Denies: Hx Aneurysm, Hx Angina, Hx Angioplasty, Hx Cardiac Arrest, Hx Cardiomegaly, Hx Congenital Heart Disease, Hx Congestive Heart Failure, Hx Hypotension, Hx Peripheral Vascular Disease, Hx Rheumatic Fever, Hx Valvular Heart Disease Respiratory History: Reports: Hx Chronic Bronchitis, Hx Pneumonia, Hx Pulmonary Edema, Hx Pulmonary Embolism, Hx Seasonal Allergies Denies: Hx Asthma, Hx Chronic Obstructive Pulmonary Disease (COPD), Hx Cystic Fibrosis, Hx Lung Cancer, Hx Pleural Effusion, Hx Sleep Apnea GI History: Reports: Hx Diverticulosis Denies: Hx Cirrhosis, Hx Crohn's Disease, Hx Gall Bladder Disease, Hx Gastroesophageal Reflux Disease, Hx Gastrointestinal Bleed, Hx Hiatal Hernia, Hx Irritable Bowel, Hx Jaundice, Hx Obstructive Bowel, Hx Ileostomy, Hx Pyloric Stenosis, Hx Ulcer History: Reports: Hx Kidney Infection Denies: Hx Acute Renal Failure, Hx Benign Prostatic Hyperplasia, Hx Chronic Renal Failure, Hx Dialysis, Hx Kidney Stones, Other Problems/Disorders Musculoskeletal History: Reports: Hx Back Problems, Hx Orthopedic Injury, Hx Tendonitis Denies: Hx Arthritis, Hx Bursitis, Hx Congenital Bone Abnormalities, Hx Fibromyalgia, Hx Gout, Hx Osteoporosis, Hx Scoliosis Sensory History: Reports: Hx Cataracts - removed, Hx Contacts or Glasses, Hx Hearing Problem - Left ear Denies: Hx Eye Injury, Hx Eye Prosthesis, Hx Glaucoma, Hx Macular Degeneration, Hx Vision Problem, Hx Deafness, Hx Hearing Aid Opthamlomology History: Reports: Hx Cataracts - removed, Hx Contacts or Glasses Denies: Hx Eye Injury, Hx Eye Prosthesis, Hx Glaucoma, Hx Macular Degeneration, Hx Vision Problem Neurological History: Reports: Hx Headaches, Other Neuro Impairments/Disorders - C-2 FX 02/20/2013 Denies: Hx Dementia, Hx Developmental Delay, Hx Migraine, Hx Nerve Disease, Hx Seizures, Hx Spinal Cord Injury, Hx Transient Ischemic Attacks (TIA) Psychiatric History: Reports: Hx Depression - Surgical History Surgery Procedure, Year, and Place: x4. Triple bypass 1995, post pacemaker, Right hp replacement, Hx Anesthesia Reactions: No - Immunization History Date of Tetanus Vaccine: pt unable to recall Date of Influenza Vaccine: pt denies this year Infectious Disease History: No Infectious Disease History: Denies: Hx Clostridium Difficile, Hx Hepatitis, Hx Human Immunodeficiency Virus (HIV), Hx Shingles, Hx Tuberculosis, Traveled Outside the [place] in Last 30 Days - Family History Known Family History: Positive: Cardiac Disease - Social History Occupation: Retired Lives: [facility] [employer] Alcohol Use: None Substance Use Type: Reports: None Hx Tobacco Use: No Smoking Status (MU): Never Smoked Tobacco Review of Systems Constitutional: Negative Negative: Fever, Chills Eyes: Negative ENT: Negative Cardiovascular: Negative Negative: Chest Pain - resolved Positive: Shortness Of Breath Positive: Abdominal Pain, Other - constipation . Negative: Vomiting, Diarrhea Genitourinary: Negative Musculoskeletal: Negative Skin: Negative Neurological: Negative Psychological: Normal All Other Systems Reviewed And Are Negative: Yes Physical Exam - Summary Physical Exam Summary: VITAL SIGNS: Reviewed. GENERAL: Patient is a elderly fragile female who is lying comfortable in the stretcher. Patient is not in any acute respiratory distress. HEAD AND FACE: No signs of trauma. No ecchymosis, hematomas or skull depressions. No sinus tenderness. EYES: PERRLA, EOMI x 2, No injected conjunctiva, no nystagmus. EARS: Hearing grossly intact. Ear canals and tympanic membranes are within normal limits. MOUTH: Oropharynx within normal limits. NECK: Supple, trachea is midline, no adenopathy, no JVD, no carotid bruit, no c- spine tenderness, neck with full ROM. CHEST: Symmetric, no tenderness at palpation LUNGS: Crackles in the bilateral bases of the lung. CVS: Regular rate and rhythm, S1 and S2 present, no murmurs or gallops appreciated. ABDOMEN: Soft, non-tender. No signs of distention. No rebound no guarding, and no masses palpated. Bowel sounds are normal. EXTREMITIES: FROM in all major joints, , no cyanosis or clubbing. Bilateral lower extremity edema +2 NEURO: Alert and oriented x 3. No acute neurological deficits. Speech is normal and follows commands. SKIN: Dry and warm Triage Information Reviewed: Yes Vital Signs On Initial Exam: Initial Vitals Temp Pulse Resp BP Pulse Ox 97 F 76 19 129/62 84 02/19/17 11:43 02/19/17 11:43 02/19/17 11:43 02/19/17 11:43 02/19/17 11:43 Vital Signs Reviewed: Yes - [place] Coma Scale Coma Scale Total: 15 Diagnostics - Vital Signs Vital Signs Temp Pulse Resp BP Pulse Ox 02/19/17 11:58 19 02/19/17 11:48 97 F 76 18 129/62 96 02/19/17 11:46 83 94 02/19/17 11:43 97 F 76 19 129/62 84 - Laboratory Lab Results: Lab Results 02/19/17 02/19/17 02/19/17 Range/Units 13:34 13:34 13:34 WBC 6.5 (3.5-10.8) 10^3/ul RBC 3.95 L (4.0-5.4) 10^6/ul Hgb 12.5 (12.0-16.0) g/dl Hct 38 (35-47) % MCV 97 (80-97) fL MCH 32 H (27-31) pg MCHC 33 (31-36) g/dl RDW 15 (10.5-15) % Plt Count 153 (150-450) 10^3/ul MPV 9 (7.4-10.4) um3 Neut % (Auto) 60.6 (38-83) % Lymph % (Auto) 18.1 L (25-47) % Nuckolls % (Auto) 17.9 H (1-9) % Eos % (Auto) 2.6 (0-6) % Baso % (Auto) 0.8 (0-2) % Absolute Neuts (auto) 4.0 (1.5-7.7) 10^3/ul Absolute Lymphs (auto) 1.2 (1.0-4.8) 10^3/ul Absolute Monos (auto) 1.2 H (0-0.8) 10^3/ul Absolute Eos (auto) 0.2 (0-0.6) 10^3/ul Absolute Basos (auto) 0.1 (0-0.2) 10^3/ul Absolute Nucleated RBC 0 10^3/ul Nucleated RBC % 0.1 Sodium 134 (133-145) mmol/L Potassium TNP Chloride 88 L (101-111) mmol/L Carbon Dioxide 40 H (22-32) mmol/L Anion Gap TNP BUN 55 H (6-24) mg/dL Creatinine 1.26 H (0.51-0.95) mg/dL Est GFR ( Amer) 51.4 (>60) Est GFR (Non-Af Amer) 40.0 (>60) BUN/Creatinine Ratio 43.7 H (8-20) Glucose 198 H (70-100) mg/dL Lactic Acid 1.6 (0.5-2.0) mmol/L Calcium 9.5 (8.6-10.3) mg/dL Total Bilirubin 0.70 (0.2-1.0) mg/dL AST TNP ALT 14 (7-52) U/L Alkaline Phosphatase 54 (34-104) U/L Total Creatine Kinase 55 (10-223) U/L Troponin I 0.05 H* (<0.04) ng/mL C-Reactive Protein 7.31 H (< 5.00) mg/L B-Natriuretic Peptide ( - 100) pg/mL Total Protein 7.2 (6.4-8.9) g/dL Albumin 3.7 (3.2-5.2) g/dL Globulin 3.5 (2-4) g/dL Albumin/Globulin Ratio 1.1 (1-3) Lipase 02/19/17 02/19/17 Range/Units 13:34 14:40 WBC (3.5-10.8) 10^3/ul RBC (4.0-5.4) 10^6/ul Hgb (12.0-16.0) g/dl Hct (35-47) % MCV (80-97) fL MCH (27-31) pg MCHC (31-36) g/dl RDW (10.5-15) % Plt Count (150-450) 10^3/ul MPV (7.4-10.4) um3 Neut % (Auto) (38-83) % Lymph % (Auto) (25-47) % Nuckolls % (Auto) (1-9) % Eos % (Auto) (0-6) % Baso % (Auto) (0-2) % Absolute Neuts (auto) (1.5-7.7) 10^3/ul Absolute Lymphs (auto) (1.0-4.8) 10^3/ul Absolute Monos (auto) (0-0.8) 10^3/ul Absolute Eos (auto) (0-0.6) 10^3/ul Absolute Basos (auto) (0-0.2) 10^3/ul Absolute Nucleated RBC 10^3/ul Nucleated RBC % Sodium (133-145) mmol/L Potassium 3.3 L Chloride (101-111) mmol/L Carbon Dioxide (22-32) mmol/L Anion Gap BUN (6-24) mg/dL Creatinine (0.51-0.95) mg/dL Est GFR ( Amer) (>60) Est GFR (Non-Af Amer) (>60) BUN/Creatinine Ratio (8-20) Glucose (70-100) mg/dL Lactic Acid (0.5-2.0) mmol/L Calcium (8.6-10.3) mg/dL Total Bilirubin (0.2-1.0) mg/dL AST 23 ALT (7-52) U/L Alkaline Phosphatase (34-104) U/L Total Creatine Kinase (10-223) U/L Troponin I (<0.04) ng/mL C-Reactive Protein (< 5.00) mg/L B-Natriuretic Peptide 258 H ( - 100) pg/mL Total Protein (6.4-8.9) g/dL Albumin (3.2-5.2) g/dL Globulin (2-4) g/dL Albumin/Globulin Ratio (1-3) Lipase Pending Result Diagrams: 02/19/17 13:34 02/19/17 14:40 Lab Statement: Any lab studies that have been ordered have been reviewed, and results considered in the medical decision making process. - Radiology CXR Xray Interpretation: Positive (See Comments) - IMPRESSION: SUSPECT MILD PASSIVE CONGESTIVE FINDINGS WITH UNDERLYING CHRONIC INTERSTITIAL CHANGE Radiology Interpretation Completed By: Radiologist - EKG 11:42 EKG Interpretation: A-FIB @ 79 BPM, with PVCs EKG Comparison: No Significant Change - similar to 10/18/16 Course/Dx - Course Course Of Treatment: 89 year old female presents with SOB 2 days ago. She also has cough, abdominal pain, constipation (last bm - 2 days ago), and bilateral LE edema. She denies any fever, chills, chest pain (none now but previously), and diarrhea. PMHx is significant for CHF, HTN, A-Fib, DM, and CABG x3. FHx is significant for CAD. Blood test are found within normal limits except for potassium 3.3, chloride 88, CO2 40, glucose 198, trop 0.05 crp 731 and BNP 258. CXR IMPRESSION: SUSPECT MILD PASSIVE CONGESTIVE FINDINGS WITH UNDERLYING CHRONIC INTERSTITIAL CHANGE. In the ED course she was given lasix for the CHF . After medications she is feeling better. I discuss my physical exam, findings and test results with Dr. Freeman from the hospitalist services and she agrees to admit patient to his services. Patient is hemodynamically stable alert and oriented x 3. She will be admitted for CHF, B/L LE edema and increased troponin r/o ACS. Assessment/Plan: EKG - A-FIB @ 79 BPM, with PVCs. CXR - IMPRESSION: SUSPECT MILD PASSIVE CONGESTIVE FINDINGS WITH UNDERLYING CHRONIC INTERSTITIAL. CHANGE - Diagnoses Provider Diagnoses: CHF (congestive heart failure), increase troponin r/o ACS, Edema of both legs - Physician Notifications Discussed Care of Patient With: Dr. Freeman - agrees to [place] [facility] [place] Discharge Plan Condition: Stable Disposition: ADMITTED TO [facility] Referrals: Sujit Watters MD [Primary Care Provider] - The documentation as recorded by the Smita martin Auryana accurately reflects the service I personally performed and the decisions made by me, Bertin Mello MD.
[2017-02-19] MEDS ORDERED: Iodixanol* (CONTRAST) 320 MG/ML 100 ML SDV IV SCH (17:19)
--- NOTE | 2017-02-19 18:32 | RAD ---
CLINICAL HISTORY: Abdominal pain COMPARISON: None TECHNIQUE: Contrast enhanced CT examination of the abdomen and pelvis from the lung bases through the initial tuberosities. The patient received 100 mL Visipaque 320 intravenously prior to imaging.The patient received oral contrast as well prior to imaging. FINDINGS: VISUALIZED LUNG BASES: There are centrilobular emphysematous changes in the visualized lungs. Otherwise the visualized lung bases are grossly clear. There is no pleural effusion. Cardiac pacemaker is partially visualized. ABDOMEN AND PELVIS: The liver is homogenously hypodense relative to the spleen. The right lobe of the liver there are 2 fluid density cyst as well as a subcentimeter low density focus that cannot be characterized further. Elsewhere the liver is homogenous in attenuation and the surface is smooth. The spleen, pancreas and adrenal glands are grossly normal in appearance. The gallbladder is normal. The kidneys are normal in appearance without focal mass, calcification or signs of hydronephrosis. There are contrast has progressed as far as the transverse colon. The small and large bowel are not distended. The appendix is not discretely visualized in the right lower quadrant. The sigmoid colon exhibits loss of how sterile folds expected in the large bowel (axial image 43 and coronal image 41). There is no gas in the small or large bowel wall be associated with bowel ischemia. There is no gross retroperitoneal or mesenteric lymphadenopathy. The pelvic viscera is normal in appearance. There is diffuse calcified atherosclerosis involving the abdominal aorta. Coarse calcification is seen at the origins of the celiac trunk and superior mesenteric artery. Along the lateral margin of the cecum and ascending colon are serpiginous venous structures (image 33 of 86). The main portal vein and splenic vein are difficult to visualize, but this may simply be a consequence of image timing after contrast injection. Similar venous varicosities are seen along the anterior inferior margin of the spleen (image 22). More inferiorly veins or visualized communicating to the left renal vein (image 21), an appearance that could be seen in the setting of splenorenal shunt. Multilevel degenerative changes of the lower thoracic and lumbar spine include loss of intervertebral disc height and multilevel vacuum disc phenomenon. There is a slight degree of grade 1 anterolisthesis of L3 over L4. Pars intraarticularis at this level are intact. The right-sided hip prosthesis and left-sided medullary screws are appropriately aligned. There are no sinister bone lesions. IMPRESSION: 1. The liver is homogenously hypodense relative to the spleen and there are intraperitoneal venous varicosities that suggest but do not prove the presence of portal venous hypertension. Please correlate to LFTs. 2. There is loss of how sterile folds of the distal descending and sigmoid colon, an appearance that can be seen with chronic inflammatory bowel disease. 3. The appendix is not discretely visualized. Please correlate to the patient's surgical history. 4. There is diffuse calcified atherosclerosis but no intraluminal bowel wall air associated with ischemic bowel. 5. Additional chronic, degenerative and iatrogenic findings described in the body the report.
[2017-02-19] MEDS: Insulin LISPRO* 1 UNITS UNIT SUBCUT SCH ×2 (19:57→21:18)
[2017-02-19] MEDS: Pregabalin CAP(*) 25 MG PO SCH (21:15)
[2017-02-19] MEDS: Apixaban* 2.5 MG TAB PO SCH (21:15)
[2017-02-19] MEDS: Senna TAB PO SCH (21:16)
[2017-02-19] MEDS: Docusate CAP* 100 MG PO SCH (21:17)
[2017-02-19] MEDS: Insulin GLARGINE(*) 1 UNITS UNIT SUBCUT SCH (21:18)
[2017-02-19 22:08] LABS: Urine Bilirubin Negative (Negative); Urine Glucose Negative (Negative); Urine Nitrite Negative (Negative)
--- NOTE | 2017-02-19 22:45 | HP ---
ADMISSION HISTORY AND PHYSICAL: DATE OF ADMISSION: 02/19/17 PRIMARY CARE PROVIDER: Dr. Sujit Watters. CONSUMER ELECTRONICS MERCHANDISER: Dr. Casas. HEALTHCARE PROXY: Her son, Adama Peralta. CODE STATUS: DNR and DNI discussed with the patient. SOURCE OF INFORMATION: History obtained from interview with the patient, review of [facility] [place] records, review of past medical records. RELIABILITY: Fair. CHIEF COMPLAINT: Hypoxia, CHF, nausea, abdominal pain listed as reason for transfer from [facility] [place] on resident transfer form. HISTORY OF PRESENT ILLNESS: This is an 89-year-old female, past medical history of CAD/CABG, type 2 diabetes, permanent pacemaker, history of PE and DVT , atrial fibrillation, chronic angina who is a resident of [facility], [place] who noted that 2 days prior to presentation on Saturday, she felt "real bad." She took a nap on that day and did not eat dinner. The nurses saw that "I wasn't breathing right" and that her "oxygen was low" and started her on oxygen. Yesterday, the patient noted she had difficulty breathing and it was noted from review of [facility] [place] records that her Lasix was increased from 40 mg twice daily to 60 mg twice daily. The patient reports that she stayed in her room all day and that today, she was still not improving and decided to send her to the emergency room. The patient reports a cough that has been chronic, nonproductive, hard to say if it is increased or not. She denies any fevers, but endorses increased lower extremity swelling for "a while." She notes a recent UTI and status post receipt of Macrobid with the last day yesterday. She notes chronic constipation with worsening constipation and her last bowel movement on Saturday after receipt of laxative. She also endorses nausea without vomiting. She reports she had chest wall discomfort yesterday that lasted for several seconds. When seen by this author, she had no chest pain, nausea, or vomiting. Otherwise , no complaints. PAST MEDICAL HISTORY: Includes: 1. Insulin-dependent type 2 diabetes mellitus. 2. CAD with a history of CABG. 3. Permanent pacemaker for sinus node dysfunction. 4. Hyperlipidemia. 5. History of DVT and pulmonary embolism. 6. History of TIA. 7. Atrial fibrillation, on apixaban. 8. Chronic angina. 9. GERD. 10. Left humeral fracture. 11. Chronic kidney disease. MEDICATIONS: Include: 1. Lasix 60 mg twice daily. 2. Insulin glargine 9 units at bedtime. 3. Metoprolol succinate 25 mg in the morning. 4. Acetaminophen 500 mg twice daily as needed. 5. Lyrica 25 mg twice daily. 6. Claritin 10 mg daily. 7. Insulin lispro 4 units at 7:30, 11:30, and 5:30. 8. Imdur ER 30 mg in the morning. 9. Eliquis 2.5 mg twice daily. 10. Potassium chloride 20 mEq in the morning. 11. Magnesium oxide 400 mg daily. 12. Citalopram 5 mg daily. 13. Senna/docusate 2 tabs at bedtime. 14. Metolazone 5 mg in the morning. ALLERGIES: To PENICILLIN, MORPHINE, and HYDROCODONE. FAMILY HISTORY: No history of CAD, PE, or DVT. SOCIAL HISTORY: Resident of [facility], [place]. Lifelong no tobacco, no alcohol or illicits. REVIEW OF SYSTEMS: Positive for as above as indicated including constipation, chest discomfort, shortness of breath, hypoxia, generalized malaise, increased lower extremity swelling. Otherwise, all other systems negative. PHYSICAL EXAMINATION GENERAL: Elderly woman appears stated age, sitting up approximately 45 degrees in bed, interactive, talks in full sentences in no apparent distress. VITAL SIGNS: When seen by this author, /45, heart rate 75, respiratory rate is ranging between 14 and 19, 96% on 4 L. T-max in the emergency room is 97.6. HEENT: Oropharynx is clear. She has dry mucous membranes. Sclerae are anicteric. NECK: She has elevated JVD half way up her ear. There is no palpable cervical or supraclavicular lymphadenopathy. LUNGS: She has rales in her bilateral lungs extending up half way. HEART: Her heart rate is regular, distant. ABDOMEN: Soft. Tender to palpation throughout. Distended. Positive bowel sounds. No rebound or guarding. EXTREMITIES: Warm and well perfused. She has swollen lower extremity, bilateral extremities; however, pitting edema, only represents approximately 1+ bilaterally. NEUROLOGIC: She is A and O x3. Cranial nerves are intact. Her gait was not assessed. No apparent anxiety, agitation, or depression. LABORATORY DATA: Labs reviewed. Notable for sodium 134, potassium 3.3, chloride 88, bicarb 40, BUN 55, creatinine 1.26. It is her baseline. Glucose 198, lactic acid 1.6. Troponin I 0.05. CRP 7.3. BNP 258. Data reviewed. EKG has right bundle branch block, normal axis. Unchanged from September. Chest x-ray, impression: I suspect mild passive congestion findings with underlying chronic interstitial changes. ASSESSMENT AND PLAN: This is an 89-year-old female with past medical history of reported congestive heart failure, coronary artery disease, hypertension and atrial fibrillation, presenting with hypoxia requiring oxygen and abdominal pain. Hypoxia, potentially in the setting of congestive heart failure. No significant amount of volume overload and no apparent pneumonic process. The patient appears intravascularly dry and extravascularly overloaded. I hesitate to give her additional Lasix beyond the 20 mg IV she has already received in the emergency room before following her response. We will admit her to telemetry. Follow strict I's and O's. Get daily weights. We will continue 20 IV tomorrow with metolazone. Hold Imdur with goal of allowing more room to diurese if necessary. No clear reason why she would have a pulmonary embolism on apixaban. I am going to pursue CTA, especially given her decreased renal function. Of note, her last transthoracic echocardiogram was in September of this year. Noted EF 50% to 55% without clinically evident diastolic dysfunction , although did note right ventricular [id number] dysfunction raising specter of potentially missed diagnosis of congestive heart failure exacerbation at this time. Elevated troponin: Suspect in the setting of demand from above processes. Continue to trend for stability. Abdominal pain: Unclear etiology at this point. Has been reporting constipation. Cannot rule out small-bowel obstruction, although did note small bowel movement 2 days prior. Given the distention and abdominal pain associated with episode of nausea yesterday without vomiting, we will check CT abdomen and pelvis to rule out obstruction versus other inflammatory etiologies as her CRP is also elevated. We will add on lipase to ED labs to rule out pancreatitis. Hypertension: Holding Imdur. Continue Toprol. Atrial fibrillation: Continue Toprol and apixaban. Diabetes: Fingersticks. Continue Lantus and lispro sliding scale. DVT prophylaxis: Continue apixaban. Code status: DNR/DNI. [id number]/[facility] #: [id number] [facility]
[2017-02-20] MEDS: Acetaminophen TAB* 325 MG PO PRN ×2 (04:36→14:29)
[2017-02-20] MEDS ORDERED: Furosemide IV* 10 MG/ML 2 ML VIAL (20 MG) IV ONE (09:00)
[2017-02-20] MEDS: Insulin LISPRO* 1 UNITS UNIT SUBCUT SCH ×4 (09:50→21:20)
[2017-02-20] MEDS: Citalopram TAB* 10 MG PO SCH (09:59)
[2017-02-20] MEDS: Metolazone TAB* 5 MG PO SCH (09:59)
[2017-02-20] MEDS: Apixaban* 2.5 MG TAB PO SCH ×2 (09:59→20:45)
[2017-02-20] MEDS: Pregabalin CAP(*) 25 MG PO SCH ×2 (10:00→20:46)
[2017-02-20] MEDS: Potassium Chlor TAB* 20 MEQ TAB.ER PO SCH (10:00)
[2017-02-20] MEDS: Metoprolol Succinate XL TAB* 25 MG PO SCH (10:00)
[2017-02-20] MEDS: Magnesium Oxide TAB* 400 MG PO SCH (10:00)
[2017-02-20] MEDS ORDERED: Furosemide IV* 10 MG/ML VIAL (40 MG) IV ONE (11:46)
[2017-02-20] MEDS: Nystatin TOP POWDER* 15 GM BTL TOPICAL SCH ×3 (13:21→20:46)
--- NOTE | 2017-02-20 13:43 | PN ---
Subjective Date of Service: 02/20/17 Interval History: Pt feels "unwell". C/p pain in her shoulders b/l and pain "all over". Also SOB for the past several days and increased leg edema. Also mentioned blurry vision x "several weeks" -apparently was seen by " an eye doctor" who said that "her eyes were fine" Abd pain present yesterday resolved Objective Active Medications: Acetaminophen (Tylenol Tab*) 650 mg PO Q4H PRN PRN Reason: FEVER/PAIN Last Admin: 02/20/17 04:36 Dose: 650 mg Apixaban (Eliquis) 2.5 mg PO BID [facility] Last Admin: 02/20/17 09:59 Dose: 2.5 mg Citalopram Hydrobromide (Celexa Tab*) 5 mg PO DAILY [facility] Last Admin: 02/20/17 09:59 Dose: 5 mg Dextrose (D50w Syringe 50 Ml*) 12.5 gm IV PUSH .FOR FS < 60 - SS PRN PRN Reason: FS < 60 Docusate Sodium (Colace Cap*) 100 mg PO BEDTIME [facility] Last Admin: 02/19/17 21:17 Dose: 100 mg Insulin Glargine (Lantus(*)) 9 units SUBCUT BEDTIME [facility] Last Admin: 02/19/17 21:18 Dose: 9 unit Insulin Human Lispro (Humalog*) 0 units SUBCUT ACHS [facility] PRN Reason: Protocol Last Admin: 02/20/17 13:19 Dose: 2 unit Iodixanol (Visipaque* 320 (Contrast)) 100 ml IV ONCE [facility] Stop: 02/21/17 23:59 Last Admin: 02/19/17 17:32 Dose: 100 ml Magnesium Hydroxide (Milk Of Magnesia Liq*) 30 ml PO Q4H PRN PRN Reason: CONSTIPATION Magnesium Oxide (Magox 400 Tab*) 400 mg PO DAILY [facility] Last Admin: 02/20/17 10:00 Dose: 400 mg Metolazone (Zaroxolyn Tab*) 5 mg PO QAM [facility] Last Admin: 02/20/17 09:59 Dose: 5 mg Metoprolol Succinate (Toprol Xl Tab*) 25 mg PO QAM [facility] Last Admin: 02/20/17 10:00 Dose: 25 mg Nystatin (Nystatin Top Powder*) 1 applic TOPICAL TID [facility] Last Admin: 02/20/17 13:21 Dose: 1 applic Ondansetron HCl (Zofran Inj*) 4 mg IV Q4H PRN PRN Reason: NAUSEA/VOMITING Potassium Chloride (Klor Con Er Tab*) 20 meq PO QAM [facility] Last Admin: 02/20/17 10:00 Dose: 20 meq Pregabalin (Lyrica Cap(*)) 25 mg PO BID [facility] Last Admin: 02/20/17 10:00 Dose: 25 mg Senna (Senokot Tab*) 2 tab PO BEDTIME [facility] Last Admin: 02/19/17 21:16 Dose: 2 tab Vital Signs 02/19/17 02/19/17 02/19/17 16:00 16:30 16:59 Temperature Pulse Rate 73 78 74 Respiratory 15 14 15 Rate Blood Pressure 104/47 106/49 (mmHg) O2 Sat by Pulse 93 93 99 Oximetry 02/19/17 02/19/17 02/19/17 17:00 17:02 18:18 Temperature 97.5 F Pulse Rate 76 63 Respiratory 18 20 Rate Blood Pressure 111/65 110/56 (mmHg) O2 Sat by Pulse 98 93 Oximetry 02/19/17 02/19/17 02/19/17 19:58 21:15 23:15 Temperature Pulse Rate Respiratory 16 16 16 Rate Blood Pressure (mmHg) O2 Sat by Pulse Oximetry 02/19/17 02/20/17 02/20/17 23:46 03:51 07:47 Temperature 98.4 F 98.4 F 97.7 F Pulse Rate 52 92 80 Respiratory 20 16 20 Rate Blood Pressure 133/50 114/60 115/52 (mmHg) O2 Sat by Pulse 94 93 94 Oximetry 02/20/17 10:00 Temperature Pulse Rate Respiratory 16 Rate Blood Pressure (mmHg) O2 Sat by Pulse Oximetry Oxygen Devices in Use Now: Nasal Cannula - on 4 l Appearance: 89 yo f in nAD, aAAOx2, poor historian Eyes: No Scleral Icterus, PERRLA Ears/Nose/Mouth/Throat: NL Teeth, Lips, Gums, Mucous Membranes Moist Neck: NL Appearance and Movements; NL JVP, Trachea Midline Respiratory: Symmetrical Chest Expansion and Respiratory Effort, - - crackles in b/l bases Cardiovascular: - - irregular Abdominal: NL Sounds; No Tenderness; No Distention, No Hepatosplenomegaly Lymphatic: No Cervical Adenopathy Extremities: No Clubbing, Cyanosis, - - +1 pitting pedal edema b/l Skin: No Rash or Ulcers, No Nodules or Sclerosis Neurological: NL Muscle Strength and Tone Result Diagrams: 02/19/17 13:34 02/19/17 14:40 Additional Lab and Data: Lab Results 02/19/17 02/19/17 02/19/17 Range/Units 13:34 13:34 13:34 WBC 6.5 (3.5-10.8) 10^3/ul RBC 3.95 L (4.0-5.4) 10^6/ul Hgb 12.5 (12.0-16.0) g/dl Hct 38 (35-47) % MCV 97 (80-97) fL MCH 32 H (27-31) pg MCHC 33 (31-36) g/dl RDW 15 (10.5-15) % Plt Count 153 (150-450) 10^3/ul MPV 9 (7.4-10.4) um3 Neut % (Auto) 60.6 (38-83) % Lymph % (Auto) 18.1 L (25-47) % [place] % (Auto) 17.9 H (1-9) % Eos % (Auto) 2.6 (0-6) % Baso % (Auto) 0.8 (0-2) % Absolute Neuts (auto) 4.0 (1.5-7.7) 10^3/ul Absolute Lymphs (auto) 1.2 (1.0-4.8) 10^3/ul Absolute Monos (auto) 1.2 H (0-0.8) 10^3/ul Absolute Eos (auto) 0.2 (0-0.6) 10^3/ul Absolute Basos (auto) 0.1 (0-0.2) 10^3/ul Absolute Nucleated RBC 0 10^3/ul Nucleated RBC % 0.1 Sodium 134 (133-145) mmol/L Potassium TNP Chloride 88 L (101-111) mmol/L Carbon Dioxide 40 H (22-32) mmol/L Anion Gap TNP BUN 55 H (6-24) mg/dL Creatinine 1.26 H (0.51-0.95) mg/dL Est GFR ( Amer) 51.4 (>60) Est GFR (Non-Af Amer) 40.0 (>60) BUN/Creatinine Ratio 43.7 H (8-20) Glucose 198 H (70-100) mg/dL Lactic Acid 1.6 (0.5-2.0) mmol/L Calcium 9.5 (8.6-10.3) mg/dL Total Bilirubin 0.70 (0.2-1.0) mg/dL AST TNP ALT 14 (7-52) U/L Alkaline Phosphatase 54 (34-104) U/L Total Creatine Kinase 55 (10-223) U/L Troponin I 0.05 H* (<0.04) ng/mL C-Reactive Protein 7.31 H (< 5.00) mg/L B-Natriuretic Peptide ( - 100) pg/mL Total Protein 7.2 (6.4-8.9) g/dL Albumin 3.7 (3.2-5.2) g/dL Globulin 3.5 (2-4) g/dL Albumin/Globulin Ratio 1.1 (1-3) Lipase 02/19/17 02/19/17 Range/Units 13:34 14:40 WBC (3.5-10.8) 10^3/ul RBC (4.0-5.4) 10^6/ul Hgb (12.0-16.0) g/dl Hct (35-47) % MCV (80-97) fL MCH (27-31) pg MCHC (31-36) g/dl RDW (10.5-15) % Plt Count (150-450) 10^3/ul MPV (7.4-10.4) um3 Neut % (Auto) (38-83) % Lymph % (Auto) (25-47) % [place] % (Auto) (1-9) % Eos % (Auto) (0-6) % Baso % (Auto) (0-2) % Absolute Neuts (auto) (1.5-7.7) 10^3/ul Absolute Lymphs (auto) (1.0-4.8) 10^3/ul Absolute Monos (auto) (0-0.8) 10^3/ul Absolute Eos (auto) (0-0.6) 10^3/ul Absolute Basos (auto) (0-0.2) 10^3/ul Absolute Nucleated RBC 10^3/ul Nucleated RBC % Sodium (133-145) mmol/L Potassium 3.3 L Chloride (101-111) mmol/L Carbon Dioxide (22-32) mmol/L Anion Gap BUN (6-24) mg/dL Creatinine (0.51-0.95) mg/dL Est GFR ( Amer) (>60) Est GFR (Non-Af Amer) (>60) BUN/Creatinine Ratio (8-20) Glucose (70-100) mg/dL Lactic Acid (0.5-2.0) mmol/L Calcium (8.6-10.3) mg/dL Total Bilirubin (0.2-1.0) mg/dL AST 23 ALT (7-52) U/L Alkaline Phosphatase (34-104) U/L Total Creatine Kinase (10-223) U/L Troponin I (<0.04) ng/mL C-Reactive Protein (< 5.00) mg/L B-Natriuretic Peptide 258 H ( - 100) pg/mL Total Protein (6.4-8.9) g/dL Albumin (3.2-5.2) g/dL Globulin (2-4) g/dL Albumin/Globulin Ratio (1-3) Lipase Pending Microbiology and Other Data: Microbiology 02/20/17 07:40 Gram Stain - Final Sputum 02/19/17 21:33 Nasal Screen MRSA (PCR)([facility]) - Final Nasal Mrsa Positive Assess/Plan/Problems-Billing Assessment: 89 yo F with h/o chronic angina(refused cath in the past), pacer for SSS, A. fib, DVT/PE, CABG, DM2, CKD stage 3 presented with SOB and ab pain. - Patient Problems (1) Acute diastolic CHF (congestive heart failure) Comment: H/o EF 55% in 09/2015 cont Lasix IV daily, metolazone and daily weights (2) Shoulder pain Comment: b/l , subacute, but in conjuncton with blurry vision, will check ESR (3) Chest pain Comment: Patient has known CAD and is followed closely by Dr. Casas as outpatient. Could not tolerate stress test in the past due to h/o fractured shoulder ( cannot hold her arm in position). troponinf "flat " at 0.05-most likley due to demand ischemia Continue Metoprolol and Imdur. No ASA due to full anticoaulation with Eliquis (4) CKD stage 3 due to type 2 diabetes mellitus Comment: creat at baseline (5) DVT prophylaxis Comment: apixaban (6) Diabetes Comment: cont ISS and Lantus (7) Atrial fibrillation Comment: chronic, rate controlled Status and Disposition: inpatient
[2017-02-20 18:21] LABS: Venous Bicarbonate HCO3 35.5 mmol/L (24-28)
[2017-02-20] MEDS: Docusate CAP* 100 MG PO SCH (20:45)
[2017-02-20] MEDS: Senna TAB PO SCH (20:45)
[2017-02-20] MEDS: Insulin GLARGINE(*) 1 UNITS UNIT SUBCUT SCH (21:21)
[2017-02-21 05:47] LABS: BUN/Creatinine Ratio 36.1 (8-20); Calcium 9.3 mg/dL (8.6-10.3); EGFR African American 44.1 (>60); EGFR Non-African American 34.3 (>60); Potassium 3.3 mmol/L (3.5-5.0)
[2017-02-21 05:52] LABS: Troponin I 0.06 ng/mL (<0.04)
[2017-02-21] MEDS ORDERED: Potassium Chlor TAB* 20 MEQ TAB.ER PO ONE (08:30)
[2017-02-21] MEDS: Insulin LISPRO* 1 UNITS UNIT SUBCUT SCH ×4 (08:52→20:29)
[2017-02-21] MEDS: Potassium Chlor TAB* 20 MEQ TAB.ER PO SCH (08:57)
[2017-02-21] MEDS: Citalopram TAB* 10 MG PO SCH (08:58)
[2017-02-21] MEDS: Isosorbide Mononitrate ER TAB* 30 MG PO SCH (08:59)
[2017-02-21] MEDS: Metoprolol Succinate XL TAB* 25 MG PO SCH (08:59)
[2017-02-21] MEDS: Apixaban* 2.5 MG TAB PO SCH ×2 (08:59→20:12)
[2017-02-21] MEDS: Magnesium Oxide TAB* 400 MG PO SCH (08:59)
[2017-02-21] MEDS: Metolazone TAB* 5 MG PO SCH (08:59)
[2017-02-21] MEDS: Pregabalin CAP(*) 25 MG PO SCH ×2 (08:59→20:12)
[2017-02-21] MEDS ORDERED: Furosemide IV* 10 MG/ML VIAL (40 MG) IV SCH (09:00)
[2017-02-21] MEDS: Nystatin TOP POWDER* 15 GM BTL TOPICAL SCH ×3 (10:07→20:13)
[2017-02-21] MEDS ORDERED: Perflutren Lipid Microsphere* 3 ML VIAL ONE (12:10)
--- NOTE | 2017-02-21 12:26 | PN ---
Subjective Date of Service: 02/21/17 Interval History: pt "feels so weak as if she were to " denies CP, but has had CP and shoulder pain " in the past" Objective Active Medications: Acetaminophen (Tylenol Tab*) 650 mg PO Q4H PRN PRN Reason: FEVER/PAIN Last Admin: 02/20/17 14:29 Dose: 650 mg Apixaban (Eliquis) 2.5 mg PO BID [facility] Last Admin: 02/21/17 08:59 Dose: 2.5 mg Citalopram Hydrobromide (Celexa Tab*) 5 mg PO DAILY [facility] Last Admin: 02/21/17 08:58 Dose: 5 mg Dextrose (D50w Syringe 50 Ml*) 12.5 gm IV PUSH .FOR FS < 60 - SS PRN PRN Reason: FS < 60 Docusate Sodium (Colace Cap*) 100 mg PO BEDTIME [facility] Last Admin: 02/20/17 20:45 Dose: 100 mg Insulin Glargine (Lantus(*)) 9 units SUBCUT BEDTIME [facility] Last Admin: 02/20/17 21:21 Dose: 9 unit Insulin Human Lispro (Humalog*) 0 units SUBCUT ACHS [facility] PRN Reason: Protocol Last Admin: 02/21/17 08:52 Dose: Not Given Iodixanol (Visipaque* 320 (Contrast)) 100 ml IV ONCE [facility] Stop: 02/21/17 23:59 Last Admin: 02/19/17 17:32 Dose: 100 ml Isosorbide Mononitrate (Imdur Er Tab*) 30 mg PO QAM [facility] Last Admin: 02/21/17 08:59 Dose: 30 mg Magnesium Hydroxide (Milk Of Magnesia Liq*) 30 ml PO Q4H PRN PRN Reason: CONSTIPATION Magnesium Oxide (Magox 400 Tab*) 400 mg PO DAILY [facility] Last Admin: 02/21/17 08:59 Dose: 400 mg Metolazone (Zaroxolyn Tab*) 5 mg PO QAM [facility] Last Admin: 02/21/17 08:59 Dose: 5 mg Metoprolol Succinate (Toprol Xl Tab*) 25 mg PO QAM [facility] Last Admin: 02/21/17 08:59 Dose: 25 mg Nystatin (Nystatin Top Powder*) 1 applic TOPICAL TID [facility] Last Admin: 02/21/17 10:07 Dose: 1 applic Ondansetron HCl (Zofran Inj*) 4 mg IV Q4H PRN PRN Reason: NAUSEA/VOMITING Polyvinyl Alcohol (Polyvinyl Alcohol 1.4% Opth*) 1 drop BOTH EYES Q2H PRN PRN Reason: DRY EYE Potassium Chloride (Klor Con Er Tab*) 20 meq PO QAM [facility] Last Admin: 02/21/17 08:57 Dose: 20 meq Pregabalin (Lyrica Cap(*)) 25 mg PO BID [facility] Last Admin: 02/21/17 08:59 Dose: 25 mg Senna (Senokot Tab*) 2 tab PO BEDTIME [facility] Last Admin: 02/20/17 20:45 Dose: 2 tab Vital Signs 02/20/17 02/20/17 02/20/17 14:00 16:03 16:56 Temperature 98.4 F 98.2 F Pulse Rate 81 80 Respiratory 20 16 14 Rate Blood Pressure 115/49 116/49 (mmHg) O2 Sat by Pulse 94 93 Oximetry 02/20/17 02/20/17 02/20/17 19:51 20:11 20:46 Temperature 98.0 F Pulse Rate 61 Respiratory 16 16 14 Rate Blood Pressure 129/48 (mmHg) O2 Sat by Pulse 94 Oximetry 02/20/17 02/20/17 02/21/17 22:46 23:44 04:01 Temperature 99.0 F 98.2 F Pulse Rate 69 69 Respiratory 16 16 16 Rate Blood Pressure 109/57 114/46 (mmHg) O2 Sat by Pulse 90 94 Oximetry 02/21/17 02/21/17 02/21/17 07:38 07:46 08:59 Temperature 98.2 F Pulse Rate 81 Respiratory 18 14 18 Rate Blood Pressure 113/52 (mmHg) O2 Sat by Pulse 91 Oximetry Oxygen Devices in Use Now: Nasal Cannula - on 4 l Appearance: 89 yo F in nAD, AAOx3, appears tired, in NAD Eyes: No Scleral Icterus, PERRLA Ears/Nose/Mouth/Throat: NL Teeth, Lips, Gums, Mucous Membranes Moist Neck: NL Appearance and Movements; NL JVP, Trachea Midline Respiratory: Symmetrical Chest Expansion and Respiratory Effort, Clear to Auscultation Cardiovascular: - - irregular Abdominal: NL Sounds; No Tenderness; No Distention, No Hepatosplenomegaly Lymphatic: No Cervical Adenopathy Extremities: No Clubbing, Cyanosis, - - trace pedal edema b/l Skin: No Rash or Ulcers, No Nodules or Sclerosis Neurological: Alert and Oriented x 3, NL Muscle Strength and Tone Result Diagrams: 02/19/17 13:34 02/21/17 05:13 Additional Lab and Data: Lab Results 02/19/17 02/19/17 02/19/17 Range/Units 13:34 13:34 13:34 WBC 6.5 (3.5-10.8) 10^3/ul RBC 3.95 L (4.0-5.4) 10^6/ul Hgb 12.5 (12.0-16.0) g/dl Hct 38 (35-47) % MCV 97 (80-97) fL MCH 32 H (27-31) pg MCHC 33 (31-36) g/dl RDW 15 (10.5-15) % Plt Count 153 (150-450) 10^3/ul MPV 9 (7.4-10.4) um3 Neut % (Auto) 60.6 (38-83) % Lymph % (Auto) 18.1 L (25-47) % [place] % (Auto) 17.9 H (1-9) % Eos % (Auto) 2.6 (0-6) % Baso % (Auto) 0.8 (0-2) % Absolute Neuts (auto) 4.0 (1.5-7.7) 10^3/ul Absolute Lymphs (auto) 1.2 (1.0-4.8) 10^3/ul Absolute Monos (auto) 1.2 H (0-0.8) 10^3/ul Absolute Eos (auto) 0.2 (0-0.6) 10^3/ul Absolute Basos (auto) 0.1 (0-0.2) 10^3/ul Absolute Nucleated RBC 0 10^3/ul Nucleated RBC % 0.1 Sodium 134 (133-145) mmol/L Potassium TNP Chloride 88 L (101-111) mmol/L Carbon Dioxide 40 H (22-32) mmol/L Anion Gap TNP BUN 55 H (6-24) mg/dL Creatinine 1.26 H (0.51-0.95) mg/dL Est GFR ( Amer) 51.4 (>60) Est GFR (Non-Af Amer) 40.0 (>60) BUN/Creatinine Ratio 43.7 H (8-20) Glucose 198 H (70-100) mg/dL Lactic Acid 1.6 (0.5-2.0) mmol/L Calcium 9.5 (8.6-10.3) mg/dL Total Bilirubin 0.70 (0.2-1.0) mg/dL AST TNP ALT 14 (7-52) U/L Alkaline Phosphatase 54 (34-104) U/L Total Creatine Kinase 55 (10-223) U/L Troponin I 0.05 H* (<0.04) ng/mL C-Reactive Protein 7.31 H (< 5.00) mg/L B-Natriuretic Peptide ( - 100) pg/mL Total Protein 7.2 (6.4-8.9) g/dL Albumin 3.7 (3.2-5.2) g/dL Globulin 3.5 (2-4) g/dL Albumin/Globulin Ratio 1.1 (1-3) Lipase 02/19/17 02/19/17 Range/Units 13:34 14:40 WBC (3.5-10.8) 10^3/ul RBC (4.0-5.4) 10^6/ul Hgb (12.0-16.0) g/dl Hct (35-47) % MCV (80-97) fL MCH (27-31) pg MCHC (31-36) g/dl RDW (10.5-15) % Plt Count (150-450) 10^3/ul MPV (7.4-10.4) um3 Neut % (Auto) (38-83) % Lymph % (Auto) (25-47) % [place] % (Auto) (1-9) % Eos % (Auto) (0-6) % Baso % (Auto) (0-2) % Absolute Neuts (auto) (1.5-7.7) 10^3/ul Absolute Lymphs (auto) (1.0-4.8) 10^3/ul Absolute Monos (auto) (0-0.8) 10^3/ul Absolute Eos (auto) (0-0.6) 10^3/ul Absolute Basos (auto) (0-0.2) 10^3/ul Absolute Nucleated RBC 10^3/ul Nucleated RBC % Sodium (133-145) mmol/L Potassium 3.3 L Chloride (101-111) mmol/L Carbon Dioxide (22-32) mmol/L Anion Gap BUN (6-24) mg/dL Creatinine (0.51-0.95) mg/dL Est GFR ( Amer) (>60) Est GFR (Non-Af Amer) (>60) BUN/Creatinine Ratio (8-20) Glucose (70-100) mg/dL Lactic Acid (0.5-2.0) mmol/L Calcium (8.6-10.3) mg/dL Total Bilirubin (0.2-1.0) mg/dL AST 23 ALT (7-52) U/L Alkaline Phosphatase (34-104) U/L Total Creatine Kinase (10-223) U/L Troponin I (<0.04) ng/mL C-Reactive Protein (< 5.00) mg/L B-Natriuretic Peptide 258 H ( - 100) pg/mL Total Protein (6.4-8.9) g/dL Albumin (3.2-5.2) g/dL Globulin (2-4) g/dL Albumin/Globulin Ratio (1-3) Lipase Pending Microbiology and Other Data: Microbiology 02/20/17 07:40 Gram Stain - Final Sputum 02/19/17 21:33 Nasal Screen MRSA (PCR)([facility]) - Final Nasal [facility]sa Positive Assess/Plan/Problems-Billing Assessment: 89 yo F with h/o chronic angina(refused cath in the past), pacer for SSS, A. fib, DVT/PE, CABG, DM2, CKD stage 3 presented with SOB and ab pain. - Patient Problems (1) Hypoxemia Comment: continues to require 02 despite slight overdiuresis V/Q scan will be ordered to eval for PE cont Eliquis VBG shows hypozemia and resp alkalosis-pt does not appear to be anxious (2) Acute diastolic CHF (congestive heart failure) Comment: H/o EF 55% in 09/2015 will hold Lasix and metolazone due to increased creatinine Today's echo pending appreciate Dr. Rogers's consult (3) Shoulder pain Comment: b/l , subacute,ESR 40 -acceptable for her age (4) Chest pain Comment: Patient has known CAD and is followed closely by Dr. Casas as outpatient. Could not tolerate stress test in the past due to h/o fractured shoulder ( cannot hold her arm in position). troponin "flat " at 0.05-0.06 most likely due to demand ischemia Continue Metoprolol and Imdur. ASA restarted as per cardiology recommendation (5) CKD stage 3 due to type 2 diabetes mellitus Comment: creat worse after diuresis. diuretics held (6) DVT prophylaxis Comment: apixaban (7) Diabetes Comment: cont ISS and Lantus (8) Atrial fibrillation Comment: chronic, rate controlled Status and Disposition: inpatient
[2017-02-21] MEDS: Acetaminophen TAB* 325 MG PO PRN (12:49)
[2017-02-21] MEDS: Aspirin Low Dose CHEW TAB* 81 MG PO SCH (12:49)
--- NOTE | 2017-02-21 14:32 | ECHO ---
Patient: NUPUR PERDOMO Rec#: [id number] : 1925 Date: 02/21/2017 Age: 89y Height: 157.48 cm / 62.0 in Weight: 74.84 kg / 164.9 lbs Sex: F BSA: 1.76 Room#: 446 Admit Date#: 02/19/2017 Type: Inpatient Referring: Kailyn Telles MD Reading: Percy Rogers MD Medical Laboratory Manager: Saranya Shirley DEZ CC: Sujit Watters MD Transthoracic Echocardiogram Indication: CAD BP: 114/46 HR: 74 Rhythm: Paced Findings History: DM,CAD with CABG,s/p agent ticketing gate insert,HLD,DVT and PE in past,TIA,a-fib,GERD,CKD. Technical Comments: The study was technically limited due to the patient's inability to lay in the left lateral decubitus position. Pt was OOB in cardiac chair. Left Ventricle: The left ventricular chamber size is normal. Global left ventricular wall motion and contractility are within normal limits. There is normal left ventricular systolic function. The estimated ejection fraction is 50-55%. The assessment of diastolic function is non-diagnostic. The patient was unable to perform a Valsalva maneuver. Left Atrium: The left atrium is moderately dilated. Right Ventricle: The right ventricle is moderately dilated. The right ventricular global systolic function is mildly to moderately reduced. A pacemaker wire is visualized in the right ventricle. Right Atrium: The right atrium is moderate to severely dilated. A pacemaker wire is visualized in the right atrium. Aortic Valve: The aortic valve is trileaflet. The aortic valve leaflets are mildly thickened. There is no evidence of aortic regurgitation. There is no evidence of aortic stenosis. Mitral Valve: There is mitral annular calcification. There is trace to mild mitral regurgitation. Tricuspid Valve: There is tricuspid annular calcification. There is mild to moderate tricuspid regurgitation. There is evidence of severe pulmonary hypertension. Pulmonic Valve: The pulmonic valve appears normal. There is mild to moderate pulmonic regurgitation. There is no pulmonic stenosis. Pericardium: There is no significant pericardial effusion. Aorta: There is no dilatation of the ascending aorta. The aortic arch is not well visualized. There is no dilation of the aortic root. Pulmonary Artery: The main pulmonary artery is not well visualized. Venous: The inferior vena cava is dilated. There is no change in the dimension of the inferior vena cava with respiration consistent with markedly increased right atrial pressure. Contrast: Definity was used to optimize study. 4ml.was used. Intravenous contrast was used to enhance endocardial border definition. Conclusions There is normal left ventricular systolic function. The estimated ejection fraction is 50-55%. Global left ventricular wall motion and contractility are within normal limits. The left ventricular chamber size is normal. The left atrium is moderately dilated. The right ventricle is moderately dilated. The right ventricular global systolic function is mildly to moderately reduced. The right atrium is moderate to severely dilated. There is mild to moderate tricuspid regurgitation. There is evidence of severe pulmonary hypertension. There is mild to moderate pulmonic regurgitation. Since the prior echocardiogram completed 10/18/16, prior right ventricular systolic pressure could not be estimated; otherwise appears fairly similar. Results discussed with the patient's attending physician, Dr. Telles. Measurements Name Value Normal Range RVIDd (AP) 2D 3.3 cm (0.9 - 2.6) RVDdMajor (2D) 4.9 cm (2.2 - 4.4) RAd ISD 4CH 6.1 cm (3.4 - 4.9) RA (A4C)W 5.3 cm (2.9 - 4.6) IVSd (2D) 1 cm (0.6 - 1) LVPWd (2D) 0.8 cm (0.6 - 1) LVIDd (2D) 4.7 cm (3.6 - 5.4) LVIDs (2D) 2.6 cm - LV FS (2D) 44 % (25 - 45) Aortic Annulus 1.6 cm (1.4 - 2.6) Ao root diameter (2D) 2.9 cm (2.1 - 3.5) Ascending Ao 2.7 cm (2.1 - 3.4) LA dimension (AP) 2D 4.9 cm (2.3 - 3.8) LAd ISD 4CH 5.5 cm (2.9 - 5.3) LA ISD 4CH W 4.4 cm (2.5 - 4.5) Name Value Normal Range LA ESV SP 4CH (A/L) 54 ml - LA ESV SP 2CH (A/L) 60 ml - LA ESV BP (A/L) 61 ml - LA ESV BP (A/L) index 34.61 ml/m2 - LA ESV SP 4CH (MOD) 52 ml - LA ESV SP 2CH (MOD) 55 ml - Name Value Normal Range MV E-wave Vmax 1 m/sec - MV deceleration time 173 msec - Name Value Normal Range AV Vmax 1.1 m/sec - AV VTI 23 cm - AV peak gradient 5.05 mmHg - AV mean gradient 2.36 mmHg - LVOT diameter 1.4 cm - LVOT Vmax 0.7 m/sec - LVOT VTI 15.8 cm - LVOT peak gradient 2.24 mmHg - LVOT mean gradient 1.13 mmHg - Name Value Normal Range TR Vmax 3.4 m/sec - TR peak gradient 45 mmHg - RAP 15 mmHg - RVSP 60 mmHg - IVC diameter 2.4 cm - Name Value Normal Range PV Vmax 0.8 m/sec - PV peak gradient 2.36 mmHg -
--- NOTE | 2017-02-21 14:43 | RAD ---
INDICATION: Evaluate for pulmonary embolus COMPARISON: Chest x-ray February 19, 2017 TECHNIQUE: Following the administration of 15.23 millicuries of xenon gas, anterior and posterior deep breath, equilibrium, and washout phase imaging was performed. Following the intravenous administration of 6.3 millicuries of technetium 99m, MAA, anterior, posterior, lateral, and oblique imaging of the chest was performed. FINDINGS: Ventilation images show normal minor air trapping in the midlung moss bilaterally. The perfusion images show no segmentally absent areas of ventilation/perfusion mismatch. There is a matched defect corresponding to artifact from the patient's cardiac pacemaker. The probability of acute pulmonary embolus is low. IMPRESSION: LOW PROBABILITY FOR ACUTE PULMONARY EMBOLUS.
[2017-02-21] MEDS: Senna TAB PO SCH (20:13)
[2017-02-21] MEDS: Docusate CAP* 100 MG PO SCH (20:13)
[2017-02-21] MEDS: Insulin GLARGINE(*) 1 UNITS UNIT SUBCUT SCH (20:28)
--- NOTE | 2017-02-21 21:24 | CONS ---
CC: Dr. Tae Casas; Dr. Sujit Watters. CARDIOLOGY CONSULTATION: DATE OF CONSULT: 02/21/17 REFERRAL PHYSICIAN: Dr. Kailyn Telles. REASON FOR CARDIAC CONSULTATION: Hypoxia in a patient with history of coronary disease, atrial fibrillation and CABG. The patient is not able to provide very much meaningful history but by review of medical records and talking to her, it seems that she had not been feeling well for several days prior to admission including having abdominal discomfort with nausea and vague chest discomfort symptoms at the [facility] where she resides. She was admitted to [facility] on 02/19/17 and has been found to have hypoxia requiring 4 L of nasal cannula supplemental oxygen. She received diuretics without significant improvement and she appears intravascularly now volume depleted as her renal function has deteriorated a bit. When I talked to the patient, she states that she has some chest discomfort symptoms but they seemed to be pretty vague and no clear angina by her description. She does not report chest pain at this time. PAST MEDICAL HISTORY: Includes: Insulin dependent diabetes mellitus. Coronary artery disease with CABG in the past. She has had a negative cardiac chemical nuclear stress test describing normal perfusion with normal LV function 11/14/12. She had Lexiscan stress test 12/25/15; however, she was unable to complete stress images due to severe shoulder restrictions. She has also had pacemaker implantation with chronic atrial fibrillation. 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 She follows with my partner, Dr. Tae Casas of [facility]. Other past medical history includes history of DVT with PE off of anticoagulation, TIA, hyperlipidemia, chronic angina, GERD, chronic kidney disease. MEDICATIONS ON ADMISSION: 1. Magnesium oxide 400 mg once a day. 2. Potassium chloride 20 mEq once a day. 3. Docusate p.r.n. 4. Lasix 60 mg p.o. b.i.d. 5. Insulin 9 units subcu q.h.s. 4 units. 6. Lispro 7:30, 11:30, 17:30. 7. Eliquis 2.5 mg p.o. b.i.d. 8. Nitrofurantoin 100 mg p.o. b.i.d. 9. Toprol XL 25 mg once a day. 10. Pregabalin/Lyrica 25 mg p.o. b.i.d. 11. Imdur 30 mg once a day. 12. Citalopram 5 mg once a day. 13. Metolazone 5 mg p.o. q.a.m. ALLERGIES TO MEDICATIONS: Listed as PENICILLIN, MORPHINE and related HYDROCODONE. FAMILY HISTORY, SOCIAL HISTORY, REVIEW OF SYSTEMS: Unable to obtain as the patient is not very communicative at this time. PHYSICAL EXAM: Height is reported as 5 feet 2, weight 165 pounds, temperature is 98.2 degrees Fahrenheit, pulse is 82, respiratory rate 18, blood pressure 113 /52, to 99/43. Her O2 saturation is currently 91% on supplemental oxygen. On general exam, she is a frail elderly lady in no acute distress. HEENT: Shows the cranium is normocephalic and atraumatic. She has dry mucosal membranes. Neck: Veins do not appear frankly distended while sitting up. There are no carotid bruits. Visible skin: Warm and perfused. Affect appropriate. Formal mini mental status exam not completed. Mild kyphoscoliosis on back exam. Lungs are clear to auscultation. No wheezes, no rales. Cardiac Exam: S1, S2. Irregular rate, controlled. No significant murmurs, rubs or gallops. PMI is nondisplaced. Abdomen: Soft, nondistended, appears benign. Extremities. Trivial to 1+ peripheral edema more prominent in the left lower extremity. Pulses appeared grossly intact. DIAGNOSTIC STUDIES/LAB DATA: The patient completed a transthoracic echocardiogram on 02/22/13 which showed low normal left ventricle ejection fraction of 50 to 55% with mild left atrial dilatation, [id number] right atrial dilatation, mild tricuspid regurgitation with mild pulmonary hypertension when compared to prior echocardiogram completed 01/16/12, pertinent changes prior, moderate pulmonary hypertension noted. Chest x-ray reviewed on admission which shows possibly very mild pulmonary vascular congestion and that was several days ago and she had received IV diuretics subsequently. A 12-lead EKG reviewed from 02/21/2017 2:44 a.m. which shows intermittently ventricular paced with underlying atrial fibrillation and a right bundle branch block. Sodium 135, potassium 3.3, chloride 97, bicarbonate 38, BUN 53, creatinine 1.44. Troponin 0.05 followed by 0.06 multiple times, and that is fairly consistent with patient's prior minor troponinemia levels. White blood cell count 6.5, hematocrit 38, platelet count 153. IMPRESSION: Ms. Onofre is an 89-year-old lady with a history of chronic AF with tachy-chucky features status post pacemaker, coronary artery disease with coronary artery bypass graft in the past admitted with vague symptoms of abdominal pain and she has hypoxia of unclear etiology. There is not a clear cardiac cause for her hypoxia and in fact she does not appear to be in congestive heart failure at this time (neither systolic nor diastolic), as well as she did not have significant improvement post IV diuretics and in fact she appears intravascularly volume depleted. There are no convincing unstable anginal symptoms with only minor troponinemia consistent with her baseline. RECOMMENDATIONS: 1. We await echocardiogram which will be reported separately. 2. I do not feel the patient is frankly volume overloaded at this time so we would hold the diuretic and watch her renal function and metabolic contraction alkalosis. Replete potassium. 3. I do feel it is reasonable to rule out a pulmonary embolus given her unexplained hypoxia as some patients may be NOAC resistant and the patient has a history of DVT/PE (albeit off anticoagulation). Evaluation and management of other potential non-cardiac causes for her hypoxia as per the Hospitalist Medicine service. 4. Continue beta stephen, Imdur and restart low dose aspirin as she had been on as an outpatient (in addition to the NOAC). 5. The patient may continue to followup with her usual learning design specialist, Dr. Casas as prior scheduled once she is discharged. The case was discussed with the patient and she seems to be in agreement with these recommendations. I have also discussed the case with the patient's attending physician, Dr. Telles. Thank you for this kind cardiac consultation opportunity. Please do not hesitate to contact me if you have any questions or concerns during the patient' s cardiovascular consultation. [id number]/[facility] #: [id number] MTDD
[2017-02-22 05:28] LABS: BUN/Creatinine Ratio 31.6 (8-20); Calcium 8.8 mg/dL (8.6-10.3); EGFR African American 32.6 (>60); EGFR Non-African American 25.4 (>60); Potassium 4.3 mmol/L (3.5-5.0)
[2017-02-22] MEDS ORDERED: NS 0.9% 500 ML BAG* 500 ML IV ONE (08:00)
[2017-02-22] MEDS: Insulin LISPRO* 1 UNITS UNIT SUBCUT SCH ×4 (09:37→21:58)
[2017-02-22] MEDS: Magnesium Oxide TAB* 400 MG PO SCH (09:42)
[2017-02-22] MEDS: Pregabalin CAP(*) 25 MG PO SCH ×2 (09:43→21:52)
[2017-02-22] MEDS: Apixaban* 2.5 MG TAB PO SCH ×2 (09:46→21:51)
[2017-02-22] MEDS: Metoprolol Succinate XL TAB* 25 MG PO SCH (09:46)
[2017-02-22] MEDS: Citalopram TAB* 10 MG PO SCH (09:46)
[2017-02-22] MEDS: Aspirin Low Dose CHEW TAB* 81 MG PO SCH (09:48)
[2017-02-22] MEDS: Isosorbide Mononitrate ER TAB* 30 MG PO SCH (09:49)
[2017-02-22] MEDS: Nystatin TOP POWDER* 15 GM BTL TOPICAL SCH ×3 (10:07→22:06)
--- NOTE | 2017-02-22 17:14 | PN ---
Subjective Date of Service: 02/22/17 Interval History: pt feels a little stronger today. Discussed leg edema due to venous stasis and the importance of having her legs elevated. Objective Active Medications: Acetaminophen (Tylenol Tab*) 650 mg PO Q4H PRN PRN Reason: FEVER/PAIN Last Admin: 02/21/17 12:49 Dose: 650 mg Apixaban (Eliquis) 2.5 mg PO BID [facility] Last Admin: 02/22/17 09:46 Dose: 2.5 mg Aspirin (Aspirin Low Dose Tab*) 81 mg PO DAILY [facility] Last Admin: 02/22/17 09:48 Dose: 81 mg Citalopram Hydrobromide (Celexa Tab*) 5 mg PO DAILY [facility] Last Admin: 02/22/17 09:46 Dose: 5 mg Dextrose (D50w Syringe 50 Ml*) 12.5 gm IV PUSH .FOR FS < 60 - SS PRN PRN Reason: FS < 60 Docusate Sodium (Colace Cap*) 100 mg PO BEDTIME [facility] Last Admin: 02/21/17 20:13 Dose: 100 mg Insulin Glargine (Lantus(*)) 9 units SUBCUT BEDTIME [facility] Last Admin: 02/21/17 20:28 Dose: 9 unit Insulin Human Lispro (Humalog*) 0 units SUBCUT ACHS [facility] PRN Reason: Protocol Last Admin: 02/22/17 13:27 Dose: 1 unit Isosorbide Mononitrate (Imdur Er Tab*) 30 mg PO QAM [facility] Last Admin: 02/22/17 09:49 Dose: 30 mg Magnesium Hydroxide (Milk Of Magnesia Liq*) 30 ml PO Q4H PRN PRN Reason: CONSTIPATION Magnesium Oxide (Magox 400 Tab*) 400 mg PO DAILY [facility] Last Admin: 02/22/17 09:42 Dose: 400 mg Metoprolol Succinate (Toprol Xl Tab*) 25 mg PO QAM [facility] Last Admin: 02/22/17 09:46 Dose: 25 mg Nystatin (Nystatin Top Powder*) 1 applic TOPICAL TID [facility] Last Admin: 02/22/17 13:27 Dose: 1 applic Ondansetron HCl (Zofran Inj*) 4 mg IV Q4H PRN PRN Reason: NAUSEA/VOMITING Polyvinyl Alcohol (Polyvinyl Alcohol 1.4% Opth*) 1 drop BOTH EYES Q2H PRN PRN Reason: DRY EYE Pregabalin (Lyrica Cap(*)) 25 mg PO BID [facility] Last Admin: 02/22/17 09:43 Dose: 25 mg Senna (Senokot Tab*) 2 tab PO BEDTIME [facility] Last Admin: 02/21/17 20:13 Dose: 2 tab Vital Signs 02/21/17 02/21/17 02/21/17 18:31 19:13 20:12 Temperature 98.2 F Pulse Rate 72 Respiratory 16 20 16 Rate Blood Pressure 110/49 (mmHg) O2 Sat by Pulse 93 Oximetry 02/21/17 02/22/17 02/22/17 22:12 00:36 04:24 Temperature 99.0 F 98.8 F Pulse Rate 78 61 Respiratory 20 16 18 Rate Blood Pressure 96/48 100/61 (mmHg) O2 Sat by Pulse 95 96 Oximetry 02/22/17 02/22/17 02/22/17 08:00 08:48 09:43 Temperature Pulse Rate 77 Respiratory 16 16 16 Rate Blood Pressure 110/41 (mmHg) O2 Sat by Pulse 95 Oximetry 02/22/17 02/22/17 02/22/17 11:43 11:51 16:14 Temperature 98.1 F 97.3 F Pulse Rate 59 77 Respiratory 18 16 16 Rate Blood Pressure 99/48 120/56 (mmHg) O2 Sat by Pulse 95 97 Oximetry Oxygen Devices in Use Now: Nasal Cannula - on 4 l Appearance: 89 yo F in nAD, aAOx3 Eyes: No Scleral Icterus, PERRLA Ears/Nose/Mouth/Throat: NL Teeth, Lips, Gums, Mucous Membranes Moist Neck: NL Appearance and Movements; NL JVP, Trachea Midline Respiratory: Symmetrical Chest Expansion and Respiratory Effort, Clear to Auscultation Cardiovascular: NL Sounds; No Murmurs; No JVD, - - irregular Abdominal: NL Sounds; No Tenderness; No Distention Lymphatic: No Cervical Adenopathy Extremities: No Clubbing, Cyanosis, - - +1 pitting pedal edema b/l Skin: No Nodules or Sclerosis Neurological: Alert and Oriented x 3, NL Muscle Strength and Tone Result Diagrams: 02/19/17 13:34 02/22/17 04:39 Additional Lab and Data: Lab Results 02/19/17 02/19/17 02/19/17 Range/Units 13:34 13:34 13:34 WBC 6.5 (3.5-10.8) 10^3/ul RBC 3.95 L (4.0-5.4) 10^6/ul Hgb 12.5 (12.0-16.0) g/dl Hct 38 (35-47) % MCV 97 (80-97) fL MCH 32 H (27-31) pg MCHC 33 (31-36) g/dl RDW 15 (10.5-15) % Plt Count 153 (150-450) 10^3/ul MPV 9 (7.4-10.4) um3 Neut % (Auto) 60.6 (38-83) % Lymph % (Auto) 18.1 L (25-47) % [place] % (Auto) 17.9 H (1-9) % Eos % (Auto) 2.6 (0-6) % Baso % (Auto) 0.8 (0-2) % Absolute Neuts (auto) 4.0 (1.5-7.7) 10^3/ul Absolute Lymphs (auto) 1.2 (1.0-4.8) 10^3/ul Absolute Monos (auto) 1.2 H (0-0.8) 10^3/ul Absolute Eos (auto) 0.2 (0-0.6) 10^3/ul Absolute Basos (auto) 0.1 (0-0.2) 10^3/ul Absolute Nucleated RBC 0 10^3/ul Nucleated RBC % 0.1 Sodium 134 (133-145) mmol/L Potassium TNP Chloride 88 L (101-111) mmol/L Carbon Dioxide 40 H (22-32) mmol/L Anion Gap TNP BUN 55 H (6-24) mg/dL Creatinine 1.26 H (0.51-0.95) mg/dL Est GFR ( Amer) 51.4 (>60) Est GFR (Non-Af Amer) 40.0 (>60) BUN/Creatinine Ratio 43.7 H (8-20) Glucose 198 H (70-100) mg/dL Lactic Acid 1.6 (0.5-2.0) mmol/L Calcium 9.5 (8.6-10.3) mg/dL Total Bilirubin 0.70 (0.2-1.0) mg/dL AST TNP ALT 14 (7-52) U/L Alkaline Phosphatase 54 (34-104) U/L Total Creatine Kinase 55 (10-223) U/L Troponin I 0.05 H* (<0.04) ng/mL C-Reactive Protein 7.31 H (< 5.00) mg/L B-Natriuretic Peptide ( - 100) pg/mL Total Protein 7.2 (6.4-8.9) g/dL Albumin 3.7 (3.2-5.2) g/dL Globulin 3.5 (2-4) g/dL Albumin/Globulin Ratio 1.1 (1-3) Lipase 02/19/17 02/19/17 Range/Units 13:34 14:40 WBC (3.5-10.8) 10^3/ul RBC (4.0-5.4) 10^6/ul Hgb (12.0-16.0) g/dl Hct (35-47) % MCV (80-97) fL MCH (27-31) pg MCHC (31-36) g/dl RDW (10.5-15) % Plt Count (150-450) 10^3/ul MPV (7.4-10.4) um3 Neut % (Auto) (38-83) % Lymph % (Auto) (25-47) % [place] % (Auto) (1-9) % Eos % (Auto) (0-6) % Baso % (Auto) (0-2) % Absolute Neuts (auto) (1.5-7.7) 10^3/ul Absolute Lymphs (auto) (1.0-4.8) 10^3/ul Absolute Monos (auto) (0-0.8) 10^3/ul Absolute Eos (auto) (0-0.6) 10^3/ul Absolute Basos (auto) (0-0.2) 10^3/ul Absolute Nucleated RBC 10^3/ul Nucleated RBC % Sodium (133-145) mmol/L Potassium 3.3 L Chloride (101-111) mmol/L Carbon Dioxide (22-32) mmol/L Anion Gap BUN (6-24) mg/dL Creatinine (0.51-0.95) mg/dL Est GFR ( Amer) (>60) Est GFR (Non-Af Amer) (>60) BUN/Creatinine Ratio (8-20) Glucose (70-100) mg/dL Lactic Acid (0.5-2.0) mmol/L Calcium (8.6-10.3) mg/dL Total Bilirubin (0.2-1.0) mg/dL AST 23 ALT (7-52) U/L Alkaline Phosphatase (34-104) U/L Total Creatine Kinase (10-223) U/L Troponin I (<0.04) ng/mL C-Reactive Protein (< 5.00) mg/L B-Natriuretic Peptide 258 H ( - 100) pg/mL Total Protein (6.4-8.9) g/dL Albumin (3.2-5.2) g/dL Globulin (2-4) g/dL Albumin/Globulin Ratio (1-3) Lipase Pending Microbiology and Other Data: Microbiology 02/20/17 07:40 Gram Stain - Final Sputum 02/19/17 21:33 Nasal Screen MRSA (PCR)([facility]) - Final Nasal Mrsa Positive Assess/Plan/Problems-Billing Assessment: 89 yo F with h/o chronic angina(refused cath in the past), pacer for SSS, A. fib, DVT/PE, CABG, DM2, CKD stage 3 presented with SOB and ab pain. - Patient Problems (1) Hypoxemia Comment: continued to require 02 despite slight overdiuresis V/Q scan low prob on 02/21/17 cont Eliquis Echo shows severe pulm HTN, suspct pt has had pulm HTN foe a long time and it has progressed. She will reuire 02 at discharge VBG shows hypoxemia and resp alkalosis-pt does not appear to be anxious (2) Acute diastolic CHF (congestive heart failure) Comment: H/o EF 55% in 09/2015 holding Lasix and metolazone due to increased creatinine Echo shows severe pulm HTN. appreciate Dr. Rogers's consult (3) Shoulder pain Comment: b/l , subacute,ESR 40 -acceptable for her age (4) Chest pain Comment: Patient has known CAD and is followed closely by Dr. Casas as outpatient. Could not tolerate stress test in the past due to h/o fractured shoulder ( cannot hold her arm in position). troponin "flat " at 0.05-0.06 most likely due to demand ischemia Continue Metoprolol and Imdur. ASA restarted as per cardiology recommendation (5) CKD stage 3 due to type 2 diabetes mellitus Comment: creat worse after diuresis. diuretics held will tx with gentle IVF x 500 ml total today (6) DVT prophylaxis Comment: apixaban (7) Diabetes Comment: cont ISS and Lantus (8) Atrial fibrillation Comment: chronic, rate controlled Status and Disposition: inpatient
[2017-02-22] MEDS: Docusate CAP* 100 MG PO SCH (21:52)
[2017-02-22] MEDS: Senna TAB PO SCH (21:54)
[2017-02-22] MEDS: Insulin GLARGINE(*) 1 UNITS UNIT SUBCUT SCH (21:59)
[2017-02-23 06:21] LABS: BUN/Creatinine Ratio 43.8 (8-20); Calcium 9.1 mg/dL (8.6-10.3); EGFR African American 46.7 (>60); EGFR Non-African American 36.3 (>60)
[2017-02-23] MEDS: Acetaminophen TAB* 325 MG PO PRN ×3 (06:21→22:36)
[2017-02-23] MEDS: Insulin LISPRO* 1 UNITS UNIT SUBCUT SCH ×4 (08:08→22:41)
[2017-02-23] MEDS ORDERED: Furosemide IV* 10 MG/ML 2 ML VIAL (20 MG) IV ONE (09:21)
[2017-02-23] MEDS: oxyCODONE TAB* 5 MG TAB PO PRN (09:56)
[2017-02-23] MEDS: Metoprolol Succinate XL TAB* 25 MG PO SCH (09:58)
[2017-02-23] MEDS: Pregabalin CAP(*) 25 MG PO SCH ×2 (09:58→22:35)
[2017-02-23] MEDS: Apixaban* 2.5 MG TAB PO SCH ×2 (09:59→22:33)
[2017-02-23] MEDS: Magnesium Oxide TAB* 400 MG PO SCH (09:59)
[2017-02-23] MEDS: Citalopram TAB* 10 MG PO SCH (09:59)
[2017-02-23] MEDS: Aspirin Low Dose CHEW TAB* 81 MG PO SCH (09:59)
[2017-02-23] MEDS: Isosorbide Mononitrate ER TAB* 30 MG PO SCH (09:59)
[2017-02-23] MEDS: Nystatin TOP POWDER* 15 GM BTL TOPICAL SCH ×3 (10:00→22:48)
--- NOTE | 2017-02-23 14:16 | PN ---
Subjective Date of Service: 02/23/17 Interval History: Pt feels more SOB today. Gained >5 lbs. Objective Active Medications: Acetaminophen (Tylenol Tab*) 650 mg PO Q4H PRN PRN Reason: FEVER/PAIN Last Admin: 02/23/17 09:57 Dose: 650 mg Apixaban (Eliquis) 2.5 mg PO BID [facility] Last Admin: 02/23/17 09:59 Dose: 2.5 mg Aspirin (Aspirin Low Dose Tab*) 81 mg PO DAILY [facility] Last Admin: 02/23/17 09:59 Dose: 81 mg Citalopram Hydrobromide (Celexa Tab*) 5 mg PO DAILY [facility] Last Admin: 02/23/17 09:59 Dose: 5 mg Dextrose (D50w Syringe 50 Ml*) 12.5 gm IV PUSH .FOR FS < 60 - SS PRN PRN Reason: FS < 60 Docusate Sodium (Colace Cap*) 100 mg PO BEDTIME [facility] Last Admin: 02/22/17 21:52 Dose: 100 mg Furosemide (Lasix Tab*) 60 mg PO BID [facility] Insulin Glargine (Lantus(*)) 9 units SUBCUT BEDTIME [facility] Last Admin: 02/22/17 21:59 Dose: 9 unit Insulin Human Lispro (Humalog*) 0 units SUBCUT ACHS [facility] PRN Reason: Protocol Last Admin: 02/23/17 13:03 Dose: 1 unit Isosorbide Mononitrate (Imdur Er Tab*) 30 mg PO QAM [facility] Last Admin: 02/23/17 09:59 Dose: 30 mg Magnesium Hydroxide (Milk Of Magnesia Liq*) 30 ml PO Q4H PRN PRN Reason: CONSTIPATION Magnesium Oxide (Magox 400 Tab*) 400 mg PO DAILY [facility] Last Admin: 02/23/17 09:59 Dose: 400 mg Metoprolol Succinate (Toprol Xl Tab*) 25 mg PO QAM [facility] Last Admin: 02/23/17 09:58 Dose: 25 mg Nystatin (Nystatin Top Powder*) 1 applic TOPICAL TID [facility] Last Admin: 02/23/17 10:00 Dose: 1 applic Ondansetron HCl (Zofran Inj*) 4 mg IV Q4H PRN PRN Reason: NAUSEA/VOMITING Oxycodone HCl (Roxycodone Tab*) 5 mg PO Q6H PRN PRN Reason: PAIN Last Admin: 02/23/17 09:56 Dose: 5 mg Polyvinyl Alcohol (Polyvinyl Alcohol 1.4% Opth*) 1 drop BOTH EYES Q2H PRN PRN Reason: DRY EYE Pregabalin (Lyrica Cap(*)) 25 mg PO BID [facility] Last Admin: 02/23/17 09:58 Dose: 25 mg Senna (Senokot Tab*) 2 tab PO BEDTIME [facility] Last Admin: 02/22/17 21:54 Dose: 2 tab Vital Signs 02/22/17 02/22/17 02/22/17 16:14 20:00 20:53 Temperature 97.3 F 97.9 F Pulse Rate 77 57 Respiratory 16 20 20 Rate Blood Pressure 120/56 112/54 (mmHg) O2 Sat by Pulse 97 100 Oximetry 02/22/17 02/22/17 02/23/17 21:52 23:52 00:11 Temperature 98.3 F Pulse Rate 79 Respiratory 16 20 20 Rate Blood Pressure 110/49 (mmHg) O2 Sat by Pulse 93 Oximetry 02/23/17 02/23/17 02/23/17 04:31 07:46 08:00 Temperature 97.7 F 98.6 F Pulse Rate 77 69 Respiratory 20 18 24 Rate Blood Pressure 109/49 101/43 (mmHg) O2 Sat by Pulse 98 94 Oximetry 02/23/17 02/23/17 02/23/17 09:56 09:58 11:58 Temperature Pulse Rate Respiratory 20 20 18 Rate Blood Pressure (mmHg) O2 Sat by Pulse Oximetry Oxygen Devices in Use Now: Nasal Cannula - on 4 l Appearance: 89 yo F in nAD, aAOx3 Eyes: No Scleral Icterus, PERRLA Ears/Nose/Mouth/Throat: NL Teeth, Lips, Gums, Mucous Membranes Moist Neck: NL Appearance and Movements; NL JVP, Trachea Midline Respiratory: Symmetrical Chest Expansion and Respiratory Effort, - - rales at b/ l bases Cardiovascular: - - irregular Abdominal: NL Sounds; No Tenderness; No Distention, No Hepatosplenomegaly Lymphatic: No Cervical Adenopathy Extremities: No Clubbing, Cyanosis, - - trace pedal edema b/l Skin: No Nodules or Sclerosis Neurological: Alert and Oriented x 3, NL Muscle Strength and Tone Result Diagrams: 02/19/17 13:34 02/23/17 05:55 Additional Lab and Data: Lab Results 02/19/17 02/19/17 02/19/17 Range/Units 13:34 13:34 13:34 WBC 6.5 (3.5-10.8) 10^3/ul RBC 3.95 L (4.0-5.4) 10^6/ul Hgb 12.5 (12.0-16.0) g/dl Hct 38 (35-47) % MCV 97 (80-97) fL MCH 32 H (27-31) pg MCHC 33 (31-36) g/dl RDW 15 (10.5-15) % Plt Count 153 (150-450) 10^3/ul MPV 9 (7.4-10.4) um3 Neut % (Auto) 60.6 (38-83) % Lymph % (Auto) 18.1 L (25-47) % [place] % (Auto) 17.9 H (1-9) % Eos % (Auto) 2.6 (0-6) % Baso % (Auto) 0.8 (0-2) % Absolute Neuts (auto) 4.0 (1.5-7.7) 10^3/ul Absolute Lymphs (auto) 1.2 (1.0-4.8) 10^3/ul Absolute Monos (auto) 1.2 H (0-0.8) 10^3/ul Absolute Eos (auto) 0.2 (0-0.6) 10^3/ul Absolute Basos (auto) 0.1 (0-0.2) 10^3/ul Absolute Nucleated RBC 0 10^3/ul Nucleated RBC % 0.1 Sodium 134 (133-145) mmol/L Potassium TNP Chloride 88 L (101-111) mmol/L Carbon Dioxide 40 H (22-32) mmol/L Anion Gap TNP BUN 55 H (6-24) mg/dL Creatinine 1.26 H (0.51-0.95) mg/dL Est GFR ( Amer) 51.4 (>60) Est GFR (Non-Af Amer) 40.0 (>60) BUN/Creatinine Ratio 43.7 H (8-20) Glucose 198 H (70-100) mg/dL Lactic Acid 1.6 (0.5-2.0) mmol/L Calcium 9.5 (8.6-10.3) mg/dL Total Bilirubin 0.70 (0.2-1.0) mg/dL AST TNP ALT 14 (7-52) U/L Alkaline Phosphatase 54 (34-104) U/L Total Creatine Kinase 55 (10-223) U/L Troponin I 0.05 H* (<0.04) ng/mL C-Reactive Protein 7.31 H (< 5.00) mg/L B-Natriuretic Peptide ( - 100) pg/mL Total Protein 7.2 (6.4-8.9) g/dL Albumin 3.7 (3.2-5.2) g/dL Globulin 3.5 (2-4) g/dL Albumin/Globulin Ratio 1.1 (1-3) Lipase 02/19/17 02/19/17 Range/Units 13:34 14:40 WBC (3.5-10.8) 10^3/ul RBC (4.0-5.4) 10^6/ul Hgb (12.0-16.0) g/dl Hct (35-47) % MCV (80-97) fL MCH (27-31) pg MCHC (31-36) g/dl RDW (10.5-15) % Plt Count (150-450) 10^3/ul MPV (7.4-10.4) um3 Neut % (Auto) (38-83) % Lymph % (Auto) (25-47) % [place] % (Auto) (1-9) % Eos % (Auto) (0-6) % Baso % (Auto) (0-2) % Absolute Neuts (auto) (1.5-7.7) 10^3/ul Absolute Lymphs (auto) (1.0-4.8) 10^3/ul Absolute Monos (auto) (0-0.8) 10^3/ul Absolute Eos (auto) (0-0.6) 10^3/ul Absolute Basos (auto) (0-0.2) 10^3/ul Absolute Nucleated RBC 10^3/ul Nucleated RBC % Sodium (133-145) mmol/L Potassium 3.3 L Chloride (101-111) mmol/L Carbon Dioxide (22-32) mmol/L Anion Gap BUN (6-24) mg/dL Creatinine (0.51-0.95) mg/dL Est GFR ( Amer) (>60) Est GFR (Non-Af Amer) (>60) BUN/Creatinine Ratio (8-20) Glucose (70-100) mg/dL Lactic Acid (0.5-2.0) mmol/L Calcium (8.6-10.3) mg/dL Total Bilirubin (0.2-1.0) mg/dL AST 23 ALT (7-52) U/L Alkaline Phosphatase (34-104) U/L Total Creatine Kinase (10-223) U/L Troponin I (<0.04) ng/mL C-Reactive Protein (< 5.00) mg/L B-Natriuretic Peptide 258 H ( - 100) pg/mL Total Protein (6.4-8.9) g/dL Albumin (3.2-5.2) g/dL Globulin (2-4) g/dL Albumin/Globulin Ratio (1-3) Lipase Pending Microbiology and Other Data: Microbiology 02/20/17 07:40 Gram Stain - Final Sputum 02/19/17 21:33 Nasal Screen MRSA (PCR)([facility]) - Final Nasal Mrsa Positive Assess/Plan/Problems-Billing Assessment: 89 yo F with h/o chronic angina(refused cath in the past), pacer for SSS, A. fib, DVT/PE, CABG, DM2, CKD stage 3 presented with SOB and ab pain. - Patient Problems (1) Hypoxemia Comment: continued to require 02 despite slight overdiuresis initially, today pt appears in CHF again V/Q scan low prob on 02/21/17 cont Eliquis Echo shows severe pulm HTN, suspect pt has had pulm HTN for a long time and it has progressed. She will reuire 02 at discharge VBG shows hypoxemia and resp alkalosis-pt does not appear to be anxious (2) Acute diastolic CHF (congestive heart failure) Comment: H/o EF 55% in 09/2015 with exacerbation today. will restart PO Lasix and tx pt with one dose of Lasix IV Echo shows severe pulm HTN. appreciate Dr. Rogers's consult (3) Shoulder pain Comment: b/l , subacute,ESR 40 -acceptable for her age (4) Chest pain Comment: Patient has known CAD and is followed closely by Dr. Casas as outpatient. Could not tolerate stress test in the past due to h/o fractured shoulder ( cannot hold her arm in position). troponin "flat " at 0.05-0.06 most likely due to demand ischemia Continue Metoprolol and Imdur. ASA restarted as per cardiology recommendation (5) CKD stage 3 due to type 2 diabetes mellitus Comment: creat back to baseline (6) DVT prophylaxis Comment: apixaban (7) Diabetes Comment: cont ISS and Lantus (8) Atrial fibrillation Comment: chronic, rate controlled Status and Disposition: inpatient
[2017-02-23] MEDS: Docusate CAP* 100 MG PO SCH (22:33)
[2017-02-23] MEDS: Furosemide TAB* 20 MG PO SCH (22:34)
[2017-02-23] MEDS: Senna TAB PO SCH (22:36)
[2017-02-23] MEDS: Insulin GLARGINE(*) 1 UNITS UNIT SUBCUT SCH (22:44)
[2017-02-24 05:08] LABS: BUN/Creatinine Ratio 48.9 (8-20); Calcium 9.2 mg/dL (8.6-10.3); EGFR African American 49.2 (>60); EGFR Non-African American 38.2 (>60); Potassium 3.8 mmol/L (3.5-5.0)
[2017-02-24] MEDS: Artificial Tears* 15 ML BTL BOTH EYES PRN ×2 (06:33→21:03)
[2017-02-24] MEDS: Insulin LISPRO* 1 UNITS UNIT SUBCUT SCH ×4 (07:37→21:49)
[2017-02-24] MEDS: Apixaban* 2.5 MG TAB PO SCH ×2 (08:20→21:00)
[2017-02-24] MEDS: Aspirin Low Dose CHEW TAB* 81 MG PO SCH (08:20)
[2017-02-24] MEDS: Pregabalin CAP(*) 25 MG PO SCH ×2 (08:21→20:59)
[2017-02-24] MEDS: Furosemide TAB* 20 MG PO SCH ×2 (08:21→20:59)
[2017-02-24] MEDS: oxyCODONE TAB* 5 MG TAB PO PRN ×2 (08:22→23:18)
[2017-02-24] MEDS: Metoprolol Succinate XL TAB* 25 MG PO SCH (08:23)
[2017-02-24] MEDS: Citalopram TAB* 10 MG PO SCH (08:23)
[2017-02-24] MEDS: Magnesium Oxide TAB* 400 MG PO SCH (08:23)
[2017-02-24] MEDS: Isosorbide Mononitrate ER TAB* 30 MG PO SCH (09:08)
[2017-02-24] MEDS: Nystatin TOP POWDER* 15 GM BTL TOPICAL SCH ×3 (12:12→20:58)
--- NOTE | 2017-02-24 14:40 | PN ---
Subjective Date of Service: 02/24/17 Interval History: still feeling tired, but SOB resolved now on 02. Objective Active Medications: Acetaminophen (Tylenol Tab*) 650 mg PO Q4H PRN PRN Reason: FEVER/PAIN Last Admin: 02/23/17 22:36 Dose: 650 mg Apixaban (Eliquis) 2.5 mg PO BID [facility] Last Admin: 02/24/17 08:20 Dose: 2.5 mg Aspirin (Aspirin Low Dose Tab*) 81 mg PO DAILY [facility] Last Admin: 02/24/17 08:20 Dose: 81 mg Citalopram Hydrobromide (Celexa Tab*) 5 mg PO DAILY [facility] Last Admin: 02/24/17 08:23 Dose: 5 mg Dextrose (D50w Syringe 50 Ml*) 12.5 gm IV PUSH .FOR FS < 60 - SS PRN PRN Reason: FS < 60 Docusate Sodium (Colace Cap*) 100 mg PO BEDTIME [facility] Last Admin: 02/23/17 22:33 Dose: 100 mg Furosemide (Lasix Tab*) 60 mg PO BID [facility] Last Admin: 02/24/17 08:21 Dose: 60 mg Insulin Glargine (Lantus(*)) 9 units SUBCUT BEDTIME [facility] Last Admin: 02/23/17 22:44 Dose: 9 unit Insulin Human Lispro (Humalog*) 0 units SUBCUT ACHS [facility] PRN Reason: Protocol Last Admin: 02/24/17 12:17 Dose: 1 unit Isosorbide Mononitrate (Imdur Er Tab*) 30 mg PO QAM [facility] Last Admin: 02/24/17 09:08 Dose: 30 mg Magnesium Hydroxide (Milk Of Magnesia Liq*) 30 ml PO Q4H PRN PRN Reason: CONSTIPATION Magnesium Oxide (Magox 400 Tab*) 400 mg PO DAILY [facility] Last Admin: 02/24/17 08:23 Dose: 400 mg Metoprolol Succinate (Toprol Xl Tab*) 25 mg PO QAM [facility] Last Admin: 02/24/17 08:23 Dose: 25 mg Nystatin (Nystatin Top Powder*) 1 applic TOPICAL TID [facility] Last Admin: 02/24/17 12:12 Dose: Not Given Ondansetron HCl (Zofran Inj*) 4 mg IV Q4H PRN PRN Reason: NAUSEA/VOMITING Oxycodone HCl (Roxycodone Tab*) 5 mg PO Q6H PRN PRN Reason: PAIN Last Admin: 02/24/17 08:22 Dose: 5 mg Polyvinyl Alcohol (Polyvinyl Alcohol 1.4% Opth*) 1 drop BOTH EYES Q2H PRN PRN Reason: DRY EYE Last Admin: 02/24/17 06:33 Dose: 1 drop Pregabalin (Lyrica Cap(*)) 25 mg PO BID [facility] Last Admin: 02/24/17 08:21 Dose: 25 mg Senna (Senokot Tab*) 2 tab PO BEDTIME [facility] Last Admin: 02/23/17 22:36 Dose: 2 tab Vital Signs 02/23/17 02/23/17 02/23/17 16:11 19:54 20:00 Temperature 98.9 F 97.8 F Pulse Rate 62 68 Respiratory 18 20 18 Rate Blood Pressure 121/96 96/49 (mmHg) O2 Sat by Pulse 96 95 Oximetry 02/23/17 02/24/17 02/24/17 22:35 00:21 00:35 Temperature 97.7 F Pulse Rate 63 Respiratory 18 20 20 Rate Blood Pressure 107/53 (mmHg) O2 Sat by Pulse 96 Oximetry 02/24/17 02/24/17 02/24/17 03:29 07:17 08:21 Temperature 97.7 F 97.3 F Pulse Rate 59 91 Respiratory 20 18 15 Rate Blood Pressure 103/50 104/55 (mmHg) O2 Sat by Pulse 99 92 Oximetry 02/24/17 02/24/17 02/24/17 08:22 08:30 10:22 Temperature Pulse Rate Respiratory 15 16 17 Rate Blood Pressure (mmHg) O2 Sat by Pulse Oximetry 02/24/17 11:17 Temperature 98.1 F Pulse Rate 62 Respiratory 18 Rate Blood Pressure 108/44 (mmHg) O2 Sat by Pulse 93 Oximetry Oxygen Devices in Use Now: Nasal Cannula - on 4 l Appearance: 89 yo F in nAD,AAOx3 Eyes: No Scleral Icterus, PERRLA Ears/Nose/Mouth/Throat: NL Teeth, Lips, Gums, Mucous Membranes Moist Neck: NL Appearance and Movements; NL JVP, Trachea Midline Respiratory: Symmetrical Chest Expansion and Respiratory Effort, - - crackles at b/l bases Cardiovascular: - - irregular Abdominal: NL Sounds; No Tenderness; No Distention, No Hepatosplenomegaly Lymphatic: No Axillary Adenopathy Extremities: No Clubbing, Cyanosis, - - +1 pitting pedal edema b/l Skin: No Nodules or Sclerosis Neurological: Alert and Oriented x 3, NL Muscle Strength and Tone Result Diagrams: 02/19/17 13:34 02/24/17 04:31 Additional Lab and Data: Lab Results 02/19/17 02/19/17 02/19/17 Range/Units 13:34 13:34 13:34 WBC 6.5 (3.5-10.8) 10^3/ul RBC 3.95 L (4.0-5.4) 10^6/ul Hgb 12.5 (12.0-16.0) g/dl Hct 38 (35-47) % MCV 97 (80-97) fL MCH 32 H (27-31) pg MCHC 33 (31-36) g/dl RDW 15 (10.5-15) % Plt Count 153 (150-450) 10^3/ul MPV 9 (7.4-10.4) um3 Neut % (Auto) 60.6 (38-83) % Lymph % (Auto) 18.1 L (25-47) % [place] % (Auto) 17.9 H (1-9) % Eos % (Auto) 2.6 (0-6) % Baso % (Auto) 0.8 (0-2) % Absolute Neuts (auto) 4.0 (1.5-7.7) 10^3/ul Absolute Lymphs (auto) 1.2 (1.0-4.8) 10^3/ul Absolute Monos (auto) 1.2 H (0-0.8) 10^3/ul Absolute Eos (auto) 0.2 (0-0.6) 10^3/ul Absolute Basos (auto) 0.1 (0-0.2) 10^3/ul Absolute Nucleated RBC 0 10^3/ul Nucleated RBC % 0.1 Sodium 134 (133-145) mmol/L Potassium TNP Chloride 88 L (101-111) mmol/L Carbon Dioxide 40 H (22-32) mmol/L Anion Gap TNP BUN 55 H (6-24) mg/dL Creatinine 1.26 H (0.51-0.95) mg/dL Est GFR ( Amer) 51.4 (>60) Est GFR (Non-Af Amer) 40.0 (>60) BUN/Creatinine Ratio 43.7 H (8-20) Glucose 198 H (70-100) mg/dL Lactic Acid 1.6 (0.5-2.0) mmol/L Calcium 9.5 (8.6-10.3) mg/dL Total Bilirubin 0.70 (0.2-1.0) mg/dL AST TNP ALT 14 (7-52) U/L Alkaline Phosphatase 54 (34-104) U/L Total Creatine Kinase 55 (10-223) U/L Troponin I 0.05 H* (<0.04) ng/mL C-Reactive Protein 7.31 H (< 5.00) mg/L B-Natriuretic Peptide ( - 100) pg/mL Total Protein 7.2 (6.4-8.9) g/dL Albumin 3.7 (3.2-5.2) g/dL Globulin 3.5 (2-4) g/dL Albumin/Globulin Ratio 1.1 (1-3) Lipase 02/19/17 02/19/17 Range/Units 13:34 14:40 WBC (3.5-10.8) 10^3/ul RBC (4.0-5.4) 10^6/ul Hgb (12.0-16.0) g/dl Hct (35-47) % MCV (80-97) fL MCH (27-31) pg MCHC (31-36) g/dl RDW (10.5-15) % Plt Count (150-450) 10^3/ul MPV (7.4-10.4) um3 Neut % (Auto) (38-83) % Lymph % (Auto) (25-47) % [place] % (Auto) (1-9) % Eos % (Auto) (0-6) % Baso % (Auto) (0-2) % Absolute Neuts (auto) (1.5-7.7) 10^3/ul Absolute Lymphs (auto) (1.0-4.8) 10^3/ul Absolute Monos (auto) (0-0.8) 10^3/ul Absolute Eos (auto) (0-0.6) 10^3/ul Absolute Basos (auto) (0-0.2) 10^3/ul Absolute Nucleated RBC 10^3/ul Nucleated RBC % Sodium (133-145) mmol/L Potassium 3.3 L Chloride (101-111) mmol/L Carbon Dioxide (22-32) mmol/L Anion Gap BUN (6-24) mg/dL Creatinine (0.51-0.95) mg/dL Est GFR ( Amer) (>60) Est GFR (Non-Af Amer) (>60) BUN/Creatinine Ratio (8-20) Glucose (70-100) mg/dL Lactic Acid (0.5-2.0) mmol/L Calcium (8.6-10.3) mg/dL Total Bilirubin (0.2-1.0) mg/dL AST 23 ALT (7-52) U/L Alkaline Phosphatase (34-104) U/L Total Creatine Kinase (10-223) U/L Troponin I (<0.04) ng/mL C-Reactive Protein (< 5.00) mg/L B-Natriuretic Peptide 258 H ( - 100) pg/mL Total Protein (6.4-8.9) g/dL Albumin (3.2-5.2) g/dL Globulin (2-4) g/dL Albumin/Globulin Ratio (1-3) Lipase Pending Microbiology and Other Data: Microbiology 02/20/17 07:40 Gram Stain - Final Sputum 02/19/17 21:33 Nasal Screen MRSA (PCR)([facility]) - Final Nasal Mrsa Positive Assess/Plan/Problems-Billing Assessment: 89 yo F with h/o chronic angina(refused cath in the past), pacer for SSS, A. fib, DVT/PE, CABG, DM2, CKD stage 3 presented with SOB and ab pain. - Patient Problems (1) Hypoxemia Comment: continued to require 02 despite slight overdiuresis initially, today pt appears fairly euvolemic V/Q scan low prob on 02/21/17 cont Eliquis Echo shows severe pulm HTN, suspect pt has had pulm HTN for a long time and it has progressed. She will reguire 02 at discharge VBG shows hypoxemia and resp alkalosis-pt does not appear to be anxious (2) Acute diastolic CHF (congestive heart failure) Comment: H/o EF 55% in 09/2015 euvolemic, cont PO lasix, holding metolazone Echo shows severe pulm HTN. appreciate Dr. Rogers's consult (3) Shoulder pain Comment: b/l , subacute,ESR 40 -acceptable for her age (4) Chest pain Comment: Patient has known CAD and is followed closely by Dr. Casas as outpatient. Could not tolerate stress test in the past due to h/o fractured shoulder ( cannot hold her arm in position). troponin "flat " at 0.05-0.06 most likely due to demand ischemia Continue Metoprolol and Imdur. ASA restarted as per cardiology recommendation (5) CKD stage 3 due to type 2 diabetes mellitus Comment: creat back to baseline (6) DVT prophylaxis Comment: apixaban (7) Diabetes Comment: cont ISS and Lantus (8) Atrial fibrillation Comment: chronic, rate controlled Status and Disposition: inpatient, possible d/c back to [facility] tomorrow
[2017-02-24] MEDS: Docusate CAP* 100 MG PO SCH (20:59)
[2017-02-24] MEDS: Senna TAB PO SCH (21:00)
[2017-02-24] MEDS: Insulin GLARGINE(*) 1 UNITS UNIT SUBCUT SCH (21:01)
[2017-02-25] MEDS: Acetaminophen TAB* 325 MG PO PRN ×2 (04:03→09:27)
[2017-02-25] MEDS: Insulin LISPRO* 1 UNITS UNIT SUBCUT SCH ×2 (09:16→13:22)
[2017-02-25] MEDS: Apixaban* 2.5 MG TAB PO SCH (09:25)
[2017-02-25] MEDS: Furosemide TAB* 20 MG PO SCH (09:25)
[2017-02-25] MEDS: Isosorbide Mononitrate ER TAB* 30 MG PO SCH (09:25)
[2017-02-25] MEDS: Aspirin Low Dose CHEW TAB* 81 MG PO SCH (09:25)
[2017-02-25] MEDS: oxyCODONE TAB* 5 MG TAB PO PRN (09:26)
[2017-02-25] MEDS: Pregabalin CAP(*) 25 MG PO SCH (09:26)
[2017-02-25] MEDS: Metoprolol Succinate XL TAB* 25 MG PO SCH (09:27)
[2017-02-25] MEDS: Citalopram TAB* 10 MG PO SCH (09:27)
[2017-02-25] MEDS: Magnesium Oxide TAB* 400 MG PO SCH (09:27)
[2017-02-25] MEDS: Nystatin TOP POWDER* 15 GM BTL TOPICAL SCH (09:28)
[2017-02-25] MEDS: Artificial Tears* 15 ML BTL BOTH EYES PRN (09:30)
[2017-02-25 12:08] VITALS: BP 93/43
--- NOTE | 2017-02-26 02:27 | DS ---
DISCHARGE SUMMARY: DATE OF ADMISSION: 02/19/17 DATE OF DISCHARGE: 02/25/17 PRIMARY CARE PHYSICIAN: Dr. Sujit Watters. DISCHARGE DIAGNOSES: 1. Hypoxemia, which is most likely [id number] in a patient who right now is diagnosed with severe pulmonary hypertension and requires oxygen continuously at 4 L. 2. An episode of acute diastolic congestive heart failure during the hospital stay that resolved. The patient currently is euvolemic. SECONDARY DIAGNOSES: 1. History of atrial fibrillation, on Eliquis. 2. History of diabetes type 2. 3. History of coronary artery bypass grafting in the past. The patient has negative cardiac stress test in 2012, but later on she did not tolerate further testing. 4. History of pacemaker placement. 5. History of DVT and pulmonary embolism, on anticoagulation as above. 6. History of transient ischemic attack. 7. Hyperlipidemia. 8. History of chronic angina. 9. Chronic kidney disease, stage 3. 10. History of left humeral fracture in the past. MEDICATIONS AT DISCHARGE: Basically unchanged apart from discontinuation of metolazone and those include: 1. Acetaminophen 500 mg b.i.d. p.r.n. 2. Eliquis 2.5 mg b.i.d. 3. Aspirin 81 mg daily. 4. Celexa 5 mg daily. 5. Furosemide 60 mg b.i.d. 6. Insulin Lantus 9 units subcutaneously daily. 7. Insulin Humalog sliding scale. 8. Imdur ER 30 mg daily. 9. Claritin 10 mg daily. 10. Mag-Ox 400 mg daily. 11. Metoprolol succinate 25 mg daily. 12. Nitrofurantoin 100 mg b.i.d. 13. Potassium chloride 20 mEq daily. 14. Pregabalin 25 mg b.i.d. 15. Senna 2 tablets at bedtime. LABORATORY DATA AND STUDIES PERFORMED DURING THE HOSPITAL STAY: Include: The patient's troponins continued to be 0.05 to 0.06 prior to hospital stay. On 02/24/17: Sodium of 133, potassium 3.8, chloride 91, carbon dioxide 37, BUN 64, and creatinine 1.3. On 02/19/17: White blood cell count 6.7, hemoglobin of 12.5, hematocrit of 38, and platelets of 153. The patient's ESR was 40. The patient's venous blood gas obtained on 02/20/17 when she was on oxygen showed pH of 7.45, pCO2 of 58, paO2 of 69, and bicarbonate of 35.5. Urinalysis was unremarkable on admission. V/Q scan obtained on 02/21/17, impression: "Low probability of acute pulmonary embolism." Transthoracic echocardiogram obtained on 02/21/17 showed ""EF of 50% to 55%. The global left ventricular wall motion contractility was within normal limits. The right ventricle was moderately dilated. The left atrium was moderately dilated. The right ventricular global systolic function is [id number] reduced. The right atrium is [id number] dilated. There is mild-to- moderate tricuspid regurgitation and evidence of severe pulmonary hypertension as well as [id number] pulmonary regurgitation. Prior echocardiogram completed in September 2016. Prior right ventricular systolic function could not be estimated, otherwise appeared fairly similar." Abdomen and pelvis CT obtained on 02/19/17, impression: "The liver is homogeneous and hypodense relative to the spleen and there are intraperitoneal venous varicosities that suggest, but do not prove the presence of portal venous hypertension. Please correlate with LFTs. There is also fullness of the distal descending and sigmoid colon and appearance that can be seen in chronic inflammatory bowel disease. The appendix is not discretely visualized. Correlate with the patient's surgical history. There is diffuse calcified atherosclerosis, but no intraluminal wall air associated with ischemic bowel. Portable chest x-ray obtained on admission, impression: "Suspect mild positive congestive findings with underlying chronic interstitial change." The patient's brain natriuretic peptide was noted to be 258 at admission. CONSULTANTS DURING THE HOSPITAL STAY: Included Dr. Rogers from cardiology. HOSPITALIZATION COURSE: Mrs. Onofre is an 89-year-old female with history of chronic atrial fibrillation, PE, and DVT on Eliquis as well as status post pacemaker placement who also has had problems with chronic angina, but was deemed not to be a good candidate for cardiac catheterization and did not tolerate to have cardiac stress test done in the recent past. The patient presented with complaining of feeling poorly, weak, and short of breath. The patient also had some abdominal complaints at admission that resolved by the time of discharge. Her liver function tests were unremarkable. Her C-reactive protein was 7 at admission. Her troponins continued to be ranging between 0.05 to 0.06. The patient occasionally was complaining of sharp chest pain radiating to her shoulder, but mostly complained of bilateral shoulder pain and neck pain. She also initially complained of blurry vision that had been ongoing for several weeks. Due to that an ESR was obtained to rule out temporal arteritis. The ESR was 40, which was not significantly elevated in this 89-year-old patient. The patient initially was diuresed with intravenous Lasix, but she became hypotensive, more weak, and her creatinine worsened. Later on, she was given a very gentle hydration at 500 mL in total and she appeared to be in acute diastolic CHF. At that point, she required another dose of Lasix. Finally, it was decided that the patient is going to be just placed back on her regular dose of Lasix of 60 mg b.i.d. Her metolazone was stopped. Dr. Rogers saw the patient in consultation. The patient's echocardiogram does not show any marked abnormalities apart from severe pulmonary hypertension. In light of the that a V/Q scan was obtained to rule out PE, which was unremarkable and low probability. At this point, it is suspected that the patient might have had ongoing severe pulmonary hypertension for quite some time and right now has developed to the point of chronic hypoxemia and needing oxygen. Throughout her hospital stay, the patient had multiple chronic symptoms, which include bilateral leg pain, bilateral shoulder pain, and occasionally neck pain. She is going to be discharged back to [facility] on 4 L of oxygen continuously. PHYSICAL EXAMINATION AT THE TIME OF DISCHARGE: Vitals Signs: Blood pressure 106/61, heart rate of 69 and regular, respiratory rate 18, oxygen saturation 92 % on 4 L of oxygen nasal cannula, and temperature of 99.0. General: This is a very pleasant 89-year-old female who is in no acute distress. The patient is alert and oriented x3. Poor historian. HEENT: Head is atraumatic, normocephalic. Eyes: Pupils equal and reactive to light and accommodation. Oropharynx clear. Mucosa moist. Neck: Supple. No JVD. No bruits bilaterally. Cardiovascular: Regular rate and rhythm. No murmurs. Respiratory: Fine crackles in bilateral base, but otherwise clear. Abdomen: Soft and nontender. Bowel sounds present in all 4 quadrants. Extremities: There is +1 pitting pedal edema. Pulses present 2+ bilaterally. No clubbing or cyanosis. Neuro Evaluation: Speech clear. Cranial nerves II through XII grossly intact. Motor strength is 5/5 bilaterally. Please note this is a short summary of the patient's hospital stay. Please refer to further medical records for details. TIME SPENT: Approximately 40 minutes was spent on the patient's discharge. CC: Dr. Sujit Watters; [facility]; Dr. Rogers; Dr. Casas* [id number]/CPS #: [id number] [facility]
== END 2017-02-25 14:20 | disposition home or self-care (01) | DRG 292 ==
LOC: ED 11:30 → MEDTELE 15:56
PROVIDERS: ADMIT Internal Medicine; ATTEND Internal Medicine
DX: I50.31 Acute diastolic (congestive) heart failure (principal); E87.3 Alkalosis; E11.22 Type 2 diabetes mellitus with diabetic chronic kidney disease; I27.2 Other secondary pulmonary hypertension; I25.708 Atherosclerosis of coronary artery bypass graft(s), unspecified, with other forms of angina pectoris; R09.02 Hypoxemia; I48.91 Unspecified atrial fibrillation; N18.3 Chronic kidney disease, stage 3 (moderate); I37.1 Nonrheumatic pulmonary valve insufficiency; I36.1 Nonrheumatic tricuspid (valve) insufficiency; E78.5 Hyperlipidemia, unspecified; Z95.1 Presence of aortocoronary bypass graft; Z86.718 Personal history of other venous thrombosis and embolism; Z86.711 Personal history of pulmonary embolism; Z86.73 Personal history of transient ischemic attack (TIA), and cerebral infarction without residual deficits; Z95.0 Presence of cardiac pacemaker; Z87.81 Personal history of (healed) traumatic fracture; Z79.1 Long term (current) use of non-steroidal anti-inflammatories (NSAID); Z79.01 Long term (current) use of anticoagulants; Z79.82 Long term (current) use of aspirin; Z79.4 Long term (current) use of insulin; Z79.52 Long term (current) use of systemic steroids; Z79.899 Other long term (current) drug therapy; Z88.5 Allergy status to narcotic agent; Z88.0 Allergy status to penicillin; I45.10 Unspecified right bundle-branch block; R74.8 Abnormal levels of other serum enzymes; K59.00 Constipation, unspecified; I87.8 Other specified disorders of veins; M25.512 Pain in left shoulder; M25.511 Pain in right shoulder
CPT/HCPCS: 36415; 71020; 74177; 78582; 80048; 80053; 81003; 82550; 82803; 83605; 83690; 83880; 84484; 85025; 85652; 86140; 87040; 87205; 87641; 93005; 93306; 94760; A9270-GY; A9540; A9558; C8929; J1940; Q9967